=== PATIENT | female | born 1945 | race Caucasian/White ===

== ENCOUNTER 2019-06-05 15:50 | Inpatient (IN) | payer OTHER ==
[~2019-06-05] VITALS: Ht 170.2 cm; Wt 59.6 kg
--- NOTE | ~2019-06-05 | HC ---
[facility] [place] [address] CONSULTATION Name: MARY NOBLE Room #: 358-P ADM IN M.R.#: [id number] Admission: 06/05/19 ������������������ Attend Phys: Enrique Ventura MD Discharge: ������������������ Date of : 43 Report #: [id number] THIS REPORT FOR: //name// CC: [facility] physician/PCP Enrique Ventura DATE OF SERVICE: 06/11/2019 HISTORY OF PRESENT ILLNESS: The patient is a 74-year-old female who was admitted with dyspnea, profound anemia, hemoglobin 4.3, malnutrition, perirectal gluteal ulcers from sitting. They were cognitive issues with concern regarding encephalopathy versus an element of possible dementia. Neurology has been involved. She was seen by Gastroenterology, underwent an EGD showing erosive gastritis and esophageal stricture, which has been dilated. She also had a colonoscopy with diverticulosis. She has been transfused. She has been noted to have axillary adenopathy and an ultrasound directed biopsy has been obtained with results pending. We are seeing her in rehabilitation medicine consultation. PAST MEDICAL HISTORY: Includes hypertension, hypothyroidism, scoliosis. MEDICATIONS: Please see the full medication listing. SOCIAL HISTORY: Lives in a house. Noted to be infested with bedbugs per report. Sister's noted to be involved and the patient apparently is to go stay with her sister now. She had been living on her own and was independent without devices. No stairs. REVIEW OF SYSTEMS: No current complaints of chest pain, shortness of breath or abdominal discomfort. PHYSICAL EXAMINATION: GENERAL: A 74-year-old white female in no obvious distress. The patient is alert. VITAL SIGNS: Last recorded temperature 97.6, pulse 88, respirations 16, blood pressure 142/84 HEENT: Appeared to be benign. NEUROLOGIC: Cranial nerves grossly intact. Facies are symmetric. She has functional range of motion of both upper extremities with strength grade 4-/5. DTRs are trace to 1. Lower extremities, no focal calf swelling, functional range of motion with strength grade 4-/5. She has been at a mod assist level for sit to stand and last ambulated mod assist 20 feet, handheld. The patient does have some delay in her cognitive processing. ASSESSMENT: A 74-year-old white female with the following problem list: 1. Metabolic encephalopathy. She could have an underlying dementia. [address] [address] CONSULTATION Name: MARY NOBLE Room #: 358-P [facility] IN .R.#: [id number] Admission: 06/05/19 ������������������ Attend Phys: Enrique Ventura MD Discharge: ������������������ Date of : 43 Report #: [id number] 2. Profound anemia, now transfused. 3. Erosive gastritis. 4. Esophageal stricture, which has been dilated. 5. Axillary adenopathy with ultrasound biopsy pending. 6. Perirectal gluteal ulcers. 7. Generalized weakness and debilitation. 8. Hypertension. 9. History of scoliosis. PLAN: At this point, the patient meets criteria for an acute [address] [place] [address] inpatient rehabilitation stay. Compliant on transfer when medically ready and bed available. We will be glad to follow along with you regarding her rehab therapy needs. ��������������������������������������������� ���������������������������������������� By: ��������������������������������������������� [id number] Omer Diez MD /nt
[2019-06-05 15:55] VITALS: BP 107/54
[2019-06-05 17:09] LABS: WBC 4.7 thou/uL (4.0-11.0)
[2019-06-05 17:11] LABS: MCH 16.8 pg (26.0-34.0); MCHC 27.6 g/dL (28.0-37.0); MCV 60.9 fL (80.0-100.0); PLATELET COUNT 386 thou/uL (150-400); RBC 2.57 mil/uL (4.20-5.00); RDW 21.3 % (10.5-14.5)
[2019-06-05 17:20] LABS: ANION GAP 9 mmol/L (7-16); BUN 22 mg/dL (7-18); CALCIUM 8.6 mg/dL (8.5-10.1); CHLORIDE 104 mmol/L (98-107); CO2 26 mmol/L (21-32); GLUCOSE 114 mg/dL (74-106); POTASSIUM 3.8 mmol/L (3.5-5.1); SODIUM 139 mmol/L (136-145)
[2019-06-05 17:30] LABS: ALBUMIN 2.3 g/dL (3.4-5.0); DIRECT BILIRUBIN 0.2 mg/dL (<0.1-0.3); SGOT 27 U/L (15-37); SGPT 24 U/L (30-65); TOTAL BILIRUBIN 0.6 mg/dL (<0.1-1.0); TOTAL PROTEIN 6.1 g/dL (6.4-8.2); TROPONIN-I <0.06 ng/mL (<0.06)
[2019-06-05 17:32] LABS: HEMATOCRIT 15.7 % (37.0-47.0); HEMOGLOBIN 4.3 gm/dL (12.0-15.0)
[2019-06-05 17:45] LABS: ABSOLUTE NEUTROPHILS 3.9 thou/uL (1.4-8.2); ANISOCYTOSIS 2+; HYPOCHROMASIA 2+; MICROCYTES 2+; NUCLEATED RBCS 6 /100WBC; POIKILOCYTOSIS SLIGHT; POLYCHROMASIA OCCASIONAL
[2019-06-05 17:57] LABS: % SATURATION 2 % (20-39); IRON 6 ug/dL (50-170); TIBC 295 ug/dL (250-450)
[2019-06-05 18:06] LABS: OBSERVED RETIC COUNT 3.43 % (0.6-2.6)
[2019-06-05 18:40] LABS: FOLIC ACID 6.3 ng/mL (8.6-58.9)
[2019-06-05 20:27] VITALS: BP 123/67
[2019-06-05 23:03] VITALS: BP 106/60; BP 108/61
[2019-06-05 23:52] VITALS: BP 108/61
[2019-06-05] MEDS ORDERED: NORVASC5 M1 PO (23:59)
[2019-06-06] MEDS ORDERED: SYNTHROID88 MC1 PO
[2019-06-06] MEDS ORDERED: SIMVASTATIN40 MG PO (00:02)
--- NOTE | 2019-06-06 00:24 | NUR ---
PT ADMITTED FROM ER. PT LIVES AT HOME THAT IS INFESTED WITH BED BUGS. PT PUT IN CONTACT ISOLATION. PT IS VERY WEAK DUE TO HgB BEING 4.3. PT DID NOT ARRIVE TO UNIT UNTIL 2119. PT WEAKNESS HAS CAUSED HER TO HAVE INCONTINENCY ISSUES AND HAS CREATED MAJOR EXCORIATION ON BUTTOCKS, COCCYX, AND CREASE BETWEEN BUTTOCKS. APPLIED BARRIER CREAM AND CONSULTED WOUND CARE.
[2019-06-06 02:53] VITALS: BP 106/60
[2019-06-06 03:12] LABS: HEMATOCRIT 19.8 % (37.0-47.0); HEMOGLOBIN 5.9 gm/dL (12.0-15.0)
[2019-06-06 03:47] VITALS: BP 114/58; BP 115/68
[2019-06-06 04:06] LABS: GLYCOHEMOGLOBIN (HGB A1C) 5.2 % (4.8-5.6)
--- NOTE | 2019-06-06 04:11 | NUR ---
AFTER FIRST UNIT H&H SHOWED HgB WAS 5.9. LAB HAD SECOND UNIT READY. UNIT IS NOW INFUSING AND REPEAT H&H WILL BE ONE HOUR AFTER COMPLETETION. PT IS BEDBOUND UNTIL HgB IMPROVES AND PT/OT CAN EVAL HER. PT VSS AFTER FIRST UNIT WITH NO REACTIONS. WILL CONTINUE TO ASSESS.
[2019-06-06 07:15] VITALS: BP 115/68
[2019-06-06 08:32] LABS: HEMATOCRIT 23.3 % (37.0-47.0); HEMOGLOBIN 7.3 gm/dL (12.0-15.0)
--- NOTE | 2019-06-06 08:47 | EKG ---
[place] [address] [address] [facility] [place] [address] ELECTROCARDIOGRAM REPORT Name: MARY NOBLE Matthew Room #: 358-P [facility] IN .R.#: [id number] ������������������ Admission: 06/05/19 ������������������ Attend Phys: Enrique Ventura MD Discharge: ������������������ Date of : 43 Report #: [id number] ����������������������������������������������������������������� [id number] THIS REPORT FOR: //name// [facility] ED Test Date: 2019-06-05 Test Time: 20:00:22 Pat Name: MARY NOBLE Department: Room: 358 Gender: F Automatic [employer] Sawyer: TENISHA : 1945 Requested By: Donta Pena Order Number: [id number] MD: Arya Crain Measurements Intervals [place] Rate: 100 P: 69 MA: 139 QRS: -17 QRSD: 73 T: 68 QT: 356 QTc: 460 Interpretive Statements Sinus tachycardia Inferior infarct, old No previous ECG available for comparison Electronically Signed On 06-06-2019 8:47:03 CDT by Arya Crain [email or web address] ��������������������������������������������� <ELECTRONICALLY SIGNED> ���������������������������������������� By: Arya Crain MD, [facility] ��������������������������������������������� 06/06/19 0847 99 99 Arya Crain MD, FACC /EPI
--- NOTE | 2019-06-06 15:08 | NUR ---
WOUND CONSULT; THE PATIENT HAS A DOZEN OR MORE WOUNDS CONSISTANT WITH THE REPORTED BED BUG INFESTATION, BILATERAL BUTTOCKS AND COCCYX AREAS AT VARIOUS HEALING STAGES. RECOMMENDATION; ZGUARD TO ENTIRE AREA COVER WITH SACRAL FOAM, CHANGE DAILY/PRN DISCUSSED WITH STAFF
--- NOTE | 2019-06-06 16:32 | NUR ---
ASSUMED CARE OF PT AT 0700. PT AOX3 PLEASANT IN NO ACUTE DISTRESS. BED BUGS NOTED IN PATIENT BELONGINGS. PICTURE SENT TO ELECTRICAL MANUFACTURING ENGINEER/EVS. PATIENT GIVEN COMPLETE BATH. ALL BELONGINGS DOUBLE BAGGED. ROOM WIPED DOWN BY EVS. ISOLATION PRECAUTIONS IN PLACE. NO OTHER BEDBUGS SINCE DEEP CLEAN. BED BUG BITES NOTED THROUGHOUT BODY. WOUND EVALUATED BY WOUND CARE TEAM - ORDERS RECEIVED. PLANS FOR EGD/COLONSCOPY IN MORNING. BOWEL PREP INITIATED. SINUS ON TELEMETRY. IV FLUIDS INFUSING PER ORDER. HEMOGLOBIN 7.3 AFTER 2 UNITS PRBC INFUSED. ASYMPTOMATIC. PT VOICING NO CONCERNS. ON CLEAR LIQUIDS. TURNED Q2H. PT PROGRESSING TOWARD POC GOALS.
--- NOTE | 2019-06-06 16:58 | NUR ---
REGAN received call from Jasvir Brambila with [facility] ([phone]) stating pt was hotlined yesterday. SW reviewed chart and spoke with nursing. Pt was admitted from home due to anemia. Pt is scheduled to have EGD/colonoscopy tomorrow. Pt in isolation due to bed bugs and fleas. Wound care and Hem/Onc consulted. Per [facility] report, pt's son has been living with pt and providing care. Pt's son has been out of town for about a week and pt has not been taking her medications. [facility] to follow up with pt while in the hospital. SW is following to assist as needed with discharge planning.
[2019-06-06 17:02] VITALS: BP 116/65
[2019-06-06 20:06] VITALS: BP 120/75
[2019-06-06 23:21] VITALS: BP 103/66
[2019-06-07 04:27] VITALS: BP 128/66
[2019-06-07 05:38] LABS: HEMOGLOBIN 6.7 gm/dL (12.0-15.0)
[2019-06-07 05:40] LABS: HEMATOCRIT 22.2 % (37.0-47.0); MCH 21.2 pg (26.0-34.0); MCHC 30.3 g/dL (28.0-37.0); RBC 3.18 mil/uL (4.20-5.00); RDW 29.4 % (10.5-14.5)
[2019-06-07 05:55] LABS: CALCIUM 7.9 mg/dL (8.5-10.1); CREATININE 0.9 mg/dL (0.6-1.0); POTASSIUM 3.3 mmol/L (3.5-5.1)
[2019-06-07 06:04] LABS: MCV 69.9 fL (80.0-100.0)
--- NOTE | 2019-06-07 06:29 | NUR ---
FOLLOWING POC WITH BOWEL PREP AND IVF. PT DRANK ALL KEVIN. PT HAD 5X STOOLS OVER EVENING SHIFT. REMOVED TWO OLD IV LOCATIONS THAT WERE SLUGGISH OR NON FLUSHING. INSERTED NEW 20 GA IN LEFT FOREARM. ISOLATION PRECAUTIONS AND FALL PRECAUTIONS IN PLACE. PT HAS ABILITY TO USE BED DC. WOUND CARE WITH Z-GUARD. HOURLY ROUNDING. PT CAN USE CALL LIGHT WHEN NEEDED.
[2019-06-07 07:32] VITALS: BP 125/64
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
[2019-06-07 09:33] LABS: APTT 37.4 Seconds (24.5-32.8); INR 1.1
[2019-06-07 13:05] VITALS: BP 135/69; BP 146/83
--- NOTE | 2019-06-07 14:45 | NUR ---
Received consult to provide pt with DPOA forms. Additional consult states that pt's son, Drew Antonio, is not to visit pt or receive info. SW discussed case with [facility] wine cellar worker, Jasvir Brambila, who will see pt tomorrow. Pt receiving blood transfusion and may have EGD/colonoscopy later today. Pt remains in isolation due to bed bugs and fleas. SW met with pt at bedside. Introduced role of SW. Pt is alert/orientated x 4. Pt reports she currently lives home alone. Pt's son, Drew, has been staying with her off and on. Prior to admission, pt was independent with ADLs. No use of DME. Pt states that she does not want Drew to visit or be provided with info. Pt reports that her sister will be staying with her when she returns home. SW provided pt with Advance Directive booklet for review. Pt to review document and notify SW/SC when ready to sign and have form witnessed and notarized. SW is following to assist as needed with discharge planning.
[2019-06-07 15:46] VITALS: BP 148/86
--- NOTE | 2019-06-07 17:46 | NUR ---
ASSUMED CARE OF PATIENT AT 0715, PATIENT ALERT WITH SOME CONFUSION, AND SLIGHTLY FORGETFUL. PATIENT DENIES PAIN, BUT HAS SOME DISCOMFORT WITH BUTTOCKS, EXCORIATION NOTED, Z-POOJA APPLIED TO AREA, SACRAL FOAM IN PLACE. PATIENT HAS HAD 3 LOOSE STOOLS, DUE TO BOWEL PREP FOR PROCEDURE/COLONOSCOPY/EGD. PATIENT HAS BEEN NPO SINCE MIDNIGHT. PATIENT HAS HEMG. 6.[address] WILBURN FOR 1 UNIT OF PACKED RED BLOOD CELLS. PATIENT HAD CT SCAN OF CHEST/HEAD THIS AM AND EEG EARLY AFTERNOON. PATIENT RECEIVED 1 UNIT OF BLOOD STOPPED AT 1635, PATIENT LEFT THE UNIT FOR GI LAB AT 1640, REPORT RECEIVED FROM [facility]/GI LAB AT 1735, UPPER FOUND GASTRITIS/BIOPIES DONE, LOWER RIGHT SIDE DIVERTICULOSIS, ESOPHAGUS DIALATED, WILL DO PILL CAM TOMORROW, CAN HAVE REGULAR DIET FOR DINNER AND NPO AFTER MIDNIGHT. PT EVALUATED PATIENT TODAY, OT WILL TRY TOMORROW DUE TO LOW HEMG. SPEECH EVAL ALSO ORDERED. US OF RIGHT AXILLARY POSSIBLE TOMORROW, DUE LYMPH EDEMA. WILL CONTINUE TO MONITOR.
[2019-06-07 19:04] VITALS: BP 124/70
[2019-06-07 23:52] VITALS: BP 124/70
--- NOTE | 2019-06-08 00:46 | P ---
[facility] [place] [place] [address] PROCEDURE REPORT Name: MARY NOBLE Room #: 358-P ADM IN M.R.#: [id number] Admission: 06/05/19 ������������������ Attend Phys: Enrique Ventura MD Discharge: ������������������ Date of : 43 Report #: [id number] THIS REPORT FOR: //name// CC: [facility] physician/PCP Enrique Ventura DATE OF SERVICE: 06/07/2019 DIAGNOSTIC COLONOSCOPY Patient of Dr. Enrique Ventura. INDICATION FOR PROCEDURE: We are looking for possible causes of iron deficiency anemia. Informed consent for this procedure was obtained from the patient and from her sister prior to the procedure, after the risks of bleeding, perforation, infection, complications of sedation and the possibility I could miss something were explained to her. These are not meant to be exclusive risks. There are many risks that are not mentioned here. Anesthesia kindly provided deep sedation for both the EGD that preceded it and this colonoscopy. DESCRIPTION OF PROCEDURE: With the patient in the left lateral decubitus position, a digital rectal exam was performed, and the patient has somewhat indurated pointed area inside the anal canal at 6 o'clock. I think it is probably scar tissue. No other palpable masses or abnormalities are noted, however. Then, the Olympus colonoscope was introduced through the anal sphincter and advanced under direct visualization to the terminal ileum with no difficulty. Findings are noted on withdrawal of the scope. The terminal ileal mucosa appears normal. Cecum, normal mucosa. Ascending colon, normal mucosa. Hepatic flexure, normal mucosa. Transverse colon, normal mucosa. Splenic flexure, normal mucosa. Descending colon, normal mucosa. Sigmoid colon, uncomplicated diverticulosis is noted in the sigmoid colon, uncomplicated diverticulosis was also noted in the proximal ascending colon. Rectum, normal mucosa. Retroflex view did not reveal any other abnormalities. The scope was withdrawn slowly through the anal canal and no other abnormalities were seen. Scope was withdrawn. The patient went to the recovery area in stable condition. She tolerated the procedure well. IMPRESSION: 1. Uncomplicated right and left-sided diverticulosis. 2. Other than that, normal colonoscopic exam to the terminal ileum. RECOMMENDATIONS: For her to be on a high-fiber diet. We will also proceed with [address] [address] PROCEDURE REPORT Name: MARY NOBLE Room #: 358-P [facility] IN [facility].#: [id number] Admission: 06/05/19 ������������������ Attend Phys: Enrique Ventura MD Discharge: ������������������ Date of : 43 Report #: [id number] an M2 capsule study tomorrow. Thank you very much once again for allowing me to participate in her care. ��������������������������������������������� <ELECTRONICALLY SIGNED> ���������������������������������������� By: Jovita Arndt DO ��������������������������������������������� 06/08/19 0046 1754 0028 Joviat Arndt DO /nt
--- NOTE | 2019-06-08 00:48 | P ---
[facility] [place] [address] PROCEDURE REPORT Name: MARY NOBLE Room #: 358-P ADM IN M.R.#: [id number] Admission: 06/05/19 ������������������ Attend Phys: Enrique Ventura MD Discharge: ������������������ Date of : 43 Report #: [id number] THIS REPORT FOR: //name// CC: [facility] physician/PCP Enrique Ventura MD DATE OF SERVICE: 06/07/2019 PROCEDURE: Esophagogastroduodenoscopy with biopsies and esophageal dilatation with a Savary dilator over a guidewire to alleviate an esophageal stricture. PATIENT OF: Dr. Enrique Ventura. INDICATION FOR PROCEDURE: Iron deficiency anemia of undetermined etiology. Informed consent for this procedure was obtained prior to the administration of any medication. The risks of the procedure, which include but are not limited to bleeding, perforation, infection, complications of sedation and the possibility I could miss something were explained to the patient and she has indicated her consent by signing. Her sister who is attempting to get power of assistant prosecuting attorney for her has also indicated her consent for proceeding with EGD and colonoscopy. Anesthesia kindly provided deep sedation for the EGD and the colonoscopy we did for this patient. DESCRIPTION OF PROCEDURE: With the patient in the left lateral decubitus position, the Olympus upper videoscope was introduced through the oropharynx and through the upper esophageal sphincter and advanced under direct visualization to the third portion of the duodenum. Findings are noted on withdrawal of the scope. The second portion of the duodenum appeared normal throughout its entirety. In the duodenal bulb, there was some mild erythema. Pylorus, normal mucosa. Antrum, erythematous, eroded mucosa. Biopsies obtained from the antrum x 4 for histopathology. Good hemostasis was noted after all biopsies. Body, normal mucosa. Cardia and fundus, normal mucosa. Retroflex view does reveal a moderate hiatal hernia. The scope was withdrawn into the esophagus. The Z-line was appropriately located at the top of the gastric folds and appears to be strictured. The scope popped through this area each time I passed through it and I think it is a stricture. The more proximal esophageal mucosa appears normal. The scope was advanced then into the stomach again to the level of the distal antrum. A guidewire was advanced through the scope. The scope was withdrawn over the guidewire and then a #48-Ecuadorean Savary dilator was passed over the guidewire without difficulty. The guidewire and the dilator were removed. Then, the Olympus upper videoscope was reintroduced through the upper esophageal sphincter and advanced under direct visualization to the distal [address] [address] PROCEDURE REPORT Name: MARY NOBLE Room #: 358-P [facility] IN ..#: [id number] Admission: 06/05/19 ������������������ Attend Phys: Enrique Ventura MD Discharge: ������������������ Date of : 43 Report #: [id number] stomach and retroflexed view of the cardia was obtained. It appears that this was a stricture and it was successfully dilated with a #48 Ecuadorean Savary dilator. The scope was then withdrawn. Good hemostasis was noted after all biopsies and after the esophageal dilatation. The stomach appears unchanged from prior to dilatation. The scope was withdrawn into the esophagus. Esophageal mucosa appeared normal throughout its entirety. The scope was withdrawn. The patient was turned for colonoscopy. IMPRESSION: 1. Distal esophageal stricture, dilated as above. 2. Hiatal hernia. 3. Erosive gastritis. 4. Mild erythema of the duodenal bulb. My recommendations were to await the biopsy results and proceed with colonoscopy at this time. Thank you very much once again for allowing me to participate in her care. ��������������������������������������������� <ELECTRONICALLY SIGNED> ���������������������������������������� By: Jovita Arndt DO ��������������������������������������������� 06/08/19 0048 1750 [id number] Jovita Arndt DO /nt
[2019-06-08 03:50] VITALS: BP 142/83
[2019-06-08 05:39] LABS: HEMATOCRIT 26.8 % (37.0-47.0); HEMOGLOBIN 8.3 gm/dL (12.0-15.0)
[2019-06-08 05:51] LABS: CALCIUM 7.8 mg/dL (8.5-10.1); CREATININE 0.8 mg/dL (0.6-1.0); POTASSIUM 4.3 mmol/L (3.5-5.1)
--- NOTE | 2019-06-08 05:53 | NUR ---
POC FOR SACRAL WOUND WAS ZGUARD AND SACRAL BORDER. REPLACED BORDER 1X. OTHER SACRAL DRESSING IN PT ROOM. PT HAS BEEN NPO SINCE 2400. PT STATES NO PAIN OR N/V. PT IS HAVING QUESTIONS ABOUT THE PROCEDURES TODAY. EXPLAINED WHAT EACH ONE WAS AND WHAT THEY ARE LOOKING FOR. PT MENTATION SOMEWHAT OFF TONIGHT WITH SOME FORGETFULNESS. PT HAD HARD TIME SWALLOWING K+ PILLS. WAITING FOR BMP TO SEE K+ RESULTS. PT INCONTINENT THIS EVENING. AT APPROX O300 PLACED EXTERNAL FEMALE CATH. FALL PRECAUTIONS IN PLACE. ISOLATION PRECAUTIONS FOR BED BUGS IN PLACE. HOURLY ROUNDING.
[2019-06-08 07:14] VITALS: BP 145/92
[2019-06-08 09:08] LABS: URINE BILIRUBIN NEGATIVE (Negative); URINE BLOOD NEGATIVE (Negative); URINE CLARITY CLEAR; URINE COLOR YELLOW; URINE GLUCOSE-RANDOM* NEGATIVE (Negative); URINE KETONES NEGATIVE (Negative); URINE NITRITE-REFLEX NEGATIVE (Negative); URINE PROTEIN (DIPSTICK) NEGATIVE (Negative); URINE UROBILINOGEN 0.2 E.U./dl (0.2-1.0)
[2019-06-08 09:09] LABS: URINE LEUKOCYTES-REFLEX 2+ (Negative)
[2019-06-08 09:14] LABS: BACTERIA-REFLEX >30 Many /HPF (None Seen); CASTS None Seen /LPF (None Seen); CRYSTALS None Seen /LPF (None Seen); SQUAMOUS 0-3 Few /LPF (0-3); URINE RBC None Seen /HPF (0-2)
[2019-06-08 16:02] VITALS: BP 136/74
--- NOTE | 2019-06-08 17:35 | NUR ---
REGAN reviewed chart and spoke with nursing and attending physician. Pt is slowly progressing towards goals for discharge. Pt to have capsule study per GI. Pt's sister brought in a notary for DPOA documentation. REGAN notified Director of Case Mgmt. Attending physician states that pt is able to appoint a DPOA and sign documentation. 5N consult ordered. REGAN notified 5N liaison, who states pt will be evaluated on Tuesday by 5N rehab physician. REGAN left voice message for pt's sister to provide update. No weekend discharge planned. REGAN spoke with Jasvir at [facility] to provide update. Jasvir was onsite earlier today to meet with pt. REGAN is following to assist as needed with discharge planning.
[2019-06-08 19:32] VITALS: BP 124/76
--- NOTE | 2019-06-08 19:53 | NUR ---
PATIENT ALERT AND ORIENTED AND COOPERATIVE WITH PLAN OF CARE. PATIENT BIOPSY TO RIGHT AXILLARY LYMPH NOPE UNEVENTFUL WITH BANDAID AND PATIENT INDICATED NO PAIN. PATIENT RESUMED REGULAR DIET. PATIENT SISTER AT BEDSIDE AND SIGNED DPOA FOR FINANCIAL AND MEDICAL WITH NOTARY AND WITNESSES.
--- NOTE | 2019-06-08 20:03 | NUR ---
CONTACTED [employer] ON-CALL PROVIDER REGARDING MESSAGE FROM LAB INDICATING SEVERAL OF THE BIOPSY LAB TEST COULDN'T BE RUN DUE TO SPECIMEN BEING IN FORMULIN. ON-CALL PROVIDER INDICATED SHE WOULD LET [employer] KNOW THE MESSAGE.
[2019-06-09 04:45] VITALS: BP 147/92
[2019-06-09 05:09] LABS: HEMOGLOBIN 7.7 gm/dL (12.0-15.0); MCH 23.2 pg (26.0-34.0); MCHC 30.8 g/dL (28.0-37.0); RBC 3.32 mil/uL (4.20-5.00); RDW 29.7 % (10.5-14.5); WBC 4.6 thou/uL (4.0-11.0)
[2019-06-09 05:11] LABS: MCV 75.4 fL (80.0-100.0)
[2019-06-09 05:18] LABS: CALCIUM 7.8 mg/dL (8.5-10.1); CREATININE 0.7 mg/dL (0.6-1.0); POTASSIUM 3.7 mmol/L (3.5-5.1)
[2019-06-09 07:52] VITALS: BP 136/90
--- NOTE | 2019-06-09 16:32 | NUR ---
ASSUMED CARE OF PT AT 0700. PT ALERT AND ORIENTED, IN NO ACUTE DISTRESS. PLEASANT. VITALS NORMAL. DRESSING CHANGED PER ORDER. IRON INFUSED PER ORDER. ISOLATION PRECAUTIONS IN PLACE. CALLS OUT APPROPRIATELY. EXT GRIDER IN PLACE. SINUS ON TELEMETRY. PT PROGRESSING TOWARD POC GOALS.
[2019-06-09 20:15] VITALS: BP 146/86
--- NOTE | 2019-06-09 23:27 | NUR ---
ASSUMED CARE OF THE PT AT 191 PM. THE PT WAS LYING IN BED ON HER RIGHT SIDE. REPOSITIONED THE PT. ALERT ET ORIENTED X 3. MAKES NEEDS KNOWN. IV FLUIDS INFUSING AT 80 CC PER HOUR. IV SITE, CLEAN, DRY, AND INTACT. HEART RATE REGULAR. LUNGS CLEAR BILATERALLY, RESP., EVEN, AND UNLABORED. +BS HEARD IN ALL 4 QUADRANTS. +PP BILATERALLY. CALL LIGHT WITHIN REACH.
--- NOTE | 2019-06-10 01:27 | NUR ---
THE PT RECEIVED A BATH ON THE EVENING SHIFT. RESP., EVEN, AND UNLABORED. CALL LIGHT WITHIN REACH.
[2019-06-10 04:33] LABS: HEMATOCRIT 28.2 % (37.0-47.0); HEMOGLOBIN 8.4 gm/dL (12.0-15.0); MCH 23.7 pg (26.0-34.0); MCHC 29.8 g/dL (28.0-37.0); MCV 79.5 fL (80.0-100.0); RBC 3.55 mil/uL (4.20-5.00); RDW 31.4 % (10.5-14.5); WBC 5.3 thou/uL (4.0-11.0)
[2019-06-10 04:44] LABS: CREATININE 0.7 mg/dL (0.6-1.0); POTASSIUM 3.7 mmol/L (3.5-5.1)
[2019-06-10 04:55] VITALS: BP 130/66
[2019-06-10 07:50] VITALS: BP 153/96
[2019-06-10 15:27] VITALS: BP 150/94
--- NOTE | 2019-06-10 18:46 | NUR ---
pt is A&OX3, PT is continuing NS @ 80ML/HR, WE encourage pt to eat, pt's hgb has improved ( hgb 8.4 today), pt's vs are stable , pt has slowly meeting care plan goals at this time.
[2019-06-10 19:25] VITALS: BP 148/81
[2019-06-11 04:31] VITALS: BP 156/97
[2019-06-11 05:21] LABS: HEMATOCRIT 27.9 % (37.0-47.0); HEMOGLOBIN 8.5 gm/dL (12.0-15.0); MCH 23.9 pg (26.0-34.0); MCHC 30.5 g/dL (28.0-37.0); MCV 78.4 fL (80.0-100.0); RBC 3.56 mil/uL (4.20-5.00); RDW 35.4 % (10.5-14.5); WBC 4.8 thou/uL (4.0-11.0)
[2019-06-11 05:30] LABS: CALCIUM 8.2 mg/dL (8.5-10.1); CREATININE 0.8 mg/dL (0.6-1.0); POTASSIUM 3.6 mmol/L (3.5-5.1)
--- NOTE | 2019-06-11 05:33 | NUR ---
PT MAKING SLOW PROGRESS TOWARDS GOALS. PT REPORTS THAT SHE IS EATING NEARLY ALL HER MEALS. DENIES ANY PAIN. DID REPORT SOME BRUISING TO HER LEFT AC SITE WHERE PT PREVIOUSLY HAD AN IV CATHETER. SITE IS YELLOWISH BUT SKIN APPEARS INTACT. ENCOURAGED PT TO SHOW EACH RN THAT SITE TO HELP KEEP IT UNDER OBSERVATION. WHEN ASKED IF THIS WAS A NEW FINDING FOR HER SHE SAID THAT THIS WAS NOT A NEW ISSUE.
[2019-06-11 07:52] VITALS: BP 142/84
--- NOTE | 2019-06-11 12:41 | NUR ---
REGAN received call from pt's sister, Janie Soto, requesting update on discharge planning. REGAN discussed case with 5N rehab director occupational therapist, who states they will see how pt does with OT today to determine if pt would qualify for 5N. Pt's sister brought in a notary and had DPOA documentation completed on Tuesday. REGAN left voice message for pt's sister. REGAN is following to assist as needed with discharge planning.
[2019-06-11 16:33] VITALS: BP 137/89
[2019-06-11] MEDS ORDERED: PRENATAL COMPL1 EACH PO (17:53)
[2019-06-11] MEDS ORDERED: PROTONIX40 M1 PO (17:53)
[2019-06-11] MEDS ORDERED: VITAMIN B-1100 M2 PO (17:53)
[2019-06-11] MEDS ORDERED: TYLENOL EXTRA500 MG PO (17:53)
[2019-06-11] MEDS ORDERED: FOLIC ACID1 MG PO (17:53)
[2019-06-11] MEDS ORDERED: SYNTHROID50 MCG PO (17:53)
--- NOTE | 2019-06-11 18:45 | NUR ---
ASSUMED CARE OF PT AT 0700. PT ALERT AND ORIENTED X3 IN NO ACUTE DISTRESS. OK FOR DISCHARGE PER HOSPITALIST. RELAYED TO PHYSICIAN E COLI GROWTH IN URINE CULTURE. ANTICIPATING D/C TO REHAB. DRESSING CHANGED AT 1600 PER ORDER.
--- NOTE | 2019-06-12 10:00 | NUR ---
REGAN left voice message for Jasvir Brambila at [facility] to notify of pt's discharge disposition. Pt was discharged to 5N last evening. REGAN provided [facility] with Rehab CM's contact info. Case closed.
--- NOTE | 2019-06-12 10:07 | PATH ---
[facility] [address] [place] [address] PATHOLOGY RPT PROCEDURE Name: LYSSA PENNINGTON Room #: 358-P DIS IN M.R.#: [id number] ������������������ Admission: 06/05/19 ������������������ Date of : 43 Discharge: 06/11/19 Report #: [id number] Path Case #: [id number] [facility] Accession Number: [id number] . 01 Material submitted: . stomach - BIOPSY,GASTRIC . 01 Clinical history: . Preop DX: Microcitic anemia Postop DX: Gastritis, R sided colon diverticulosis . 02 Diagnosis: Gastric mucosa, gastritis (erosive), endoscopic biopsy: - Moderate reactive gastropathy. - Negative for intestinal metaplasia or atrophy. - Negative for Helicobacter pylori (properly controlled immunohistochemical stain performed). (IUV:armin; 06/11/2019) QMS/06/11/2019 . 02 Electronically signed: . Munira Macdonald MD, Pathologist NPI- [id number] . 01 Gross description: . Received in formalin labeled "Lyssa Pennington, BX of errosive gastritis," are two segments of yellow-mobley soft tissue measuring 0.3 x 0.2 x 0.1 cm and 0.3 x 0.3 x 0.2 cm in greatest dimensions. The specimen is submitted entirely in cassette A1. (DAC; 06/08/2019) XDC/XDC . 02 Pathologist provided ICD-10: K31.9 . 02 CPT . 470264, P08118 Specimen Comment: A courtesy copy of this report has been sent to Specimen Comment: [phone], . Specimen Comment: Report sent to / DR WILBURN Performed at: 01 [facility] [address] [id number] MD Reji Wagner MD Phone: [phone] Performed at: [address] [id number] [address] [address] PATHOLOGY RPT PROCEDURE Name: LYSSA PENNINGTON Room #: 358-P DIS IN M.R.#: [id number] ������������������ Admission: 06/05/19 ������������������ Date of : 43 Discharge: 06/11/19 Report #: [id number] Path Case #: [id number] MD Munira Vadlamani MD Phone: [phone]
--- NOTE | 2019-06-13 08:41 | HC ---
[facility] [place] [address] CONSULTATION Name: MARY NOBLE Room #: 358-P [facility] IN M.R.#: [id number] Admission: 06/05/19 ������������������ Attend Phys: Enrique Ventura MD Discharge: 06/11/19 ������������������ Date of : 43 Report #: [id number] THIS REPORT FOR: //name// CC: [facility] physician/PCP Enrique Ventura DATE OF SERVICE: 06/06/2019 HISTORY OF PRESENT ILLNESS: This is a 74-year-old female patient who was evaluated by me for altered mental status. The patient does not provide much history. Family is here. They provide some history and lot of it is taken from the record. She had been short of breath and she also is severely anemic. Her social situation is very poor. It is not clear what her nutritional status was. It is not sure how long it is going on, but the patient was having pretty significant decrease in memory when I saw her. REVIEW OF SYSTEMS: A 14-point review of system was carried out. She is anemic. She had shortness of breath. She is living with her son for the last several months. She has been feeling weak, but I am not sure whether it is fatigue or the weakness. She is definitely short of breath when she came in according to her. That was the relevant 14-point review of system. PAST MEDICAL HISTORY: Negative for stroke. FAMILY HISTORY: Negative for epilepsy. SOCIAL HISTORY: She lives with her son. She does not use alcohol. PHYSICAL EXAMINATION: Indicate she is alert. She tells me it is June. She cannot tell me the date. She does not know what hospital she is in. She could not name the president, but was able to describe. Speech looks intact. Cranial nerve examination looks intact. She moves all 4 extremities. Position sense is intact. Reflexes are present. There is no cerebellar sign. There is no meningeal sign. Blood pressure is 116/65, respirations 18, pulse is 96, temperature is 97.9. LABORATORY DATA: Her hemoglobin is 7.3 now, which is better than when she came in. GFR is normal at 54. Vitamin B12 is normal, but TSH is high. She does not appear to be in respiratory difficulty. She has no edema. There is no thyroid mass. IMPRESSION: This patient has significant altered mental status. She may be having underlying dementia, especially with this kind of condition she is living in. I think we need to do workup because no good history is available. I will get a CT scan tonight and we [place] [address] CONSULTATION Name: MARY NOBLE Room #: 358-P [facility] IN ..#: [id number] Admission: 06/05/19 ������������������ Attend Phys: Enrique Ventura MD Discharge: 06/11/19 ������������������ Date of : 43 Report #: [id number] The main management is going to be the management of her systemic problem at this stage and will follow the patient along with you. Thank you very much for this referral. ��������������������������������������������� <ELECTRONICALLY SIGNED> ���������������������������������������� By: Lenny Klein MD ��������������������������������������������� 06/13/19 0841 [id number] [id number] Lenny Klein MD /nt
--- NOTE | 2019-06-13 08:41 | EEG ---
[facility] [address] [place] [address] ELECTROENCEPHALOGRAM Name: MARY NOBLE Room #: 358-P [facility] IN M.R.#: [id number] ������������������ Admission: 06/05/19 ������������������ Attend Phys: Enrique Ventura MD Discharge: 06/11/19 ������������������ Date of : 43 Report #: [id number] ����������������������������������������������������������������� [id number] THIS REPORT FOR: //name// CC: [facility] physician/PCP Enrique Ventura DATE OF SERVICE: 06/07/2019 This patient is being evaluated for altered mental status. EEG was done by placing the electrode by standard 10-20 system of electrode placement. Both referential and sequential montages were used for recording. Background activity in this patient's EEG is about 8 Hz and 30 microvolt. The patient went to sleep and that was associated with bilateral slowing and vertex sharp waves. Photic stimulation was unremarkable. Throughout the record, no active epileptiform activity was noticed. IMPRESSION: This patient's EEG is intermixed with some theta range slowing on both sides. That is a nonspecific abnormality, which can occur with dementia, effect of psychotropic medication, encephalopathy, etc. Clinical correlation is recommended. ���������������������������������������� <ELECTRONICALLY SIGNED> ���������������������������������������� By: Lenny Klein MD ��������������������������������������������� 06/13/19 0841 1745 [id number] Lenny Klein MD /nt
--- NOTE | 2019-06-14 00:05 | PATH ---
[facility] [address] [place] [address] PATHOLOGY RPT PROCEDURE Name: REALLYSSA M Room #: 358-P DIS IN M.R.#: [id number] ������������������ Admission: 06/05/19 ������������������ Date of : 43 Discharge: 06/11/19 Report #: [id number] Path Case #: [id number] [facility] Accession Number: [id number] . 01 Material submitted: . lymph node - RIGHT AXILLARY LYMPH NODE. Modifiers: right . 01 Clinical history: . Possible infec or cancer/lymphoma . 02 Diagnosis: Lymph node, right axillary, needle core biopsy: - Lymphoid tissue with occasional reactive follicles, sinus histiocytosis, mild subacute lymphadenitis and few scattered cardona pigment/hemosiderin type deposition. Please see comment. (NATHAN:kathy 06/12/2019) QTP/06/13/2019 . 02 Comment: The right axillary lymph node shows occasional reactive follicles, sinus histiocytosis, mild subacute lymphadenitis and associated few scattered cardona pigment type deposition suggestive of hemosiderin. Definite Anmol-Edil cells, metastatic carcinoma or granulomas are not identified. Immunohistochemical stains with appropriate control show: . (block A3) CD20 - highlights the lymphoid cells within germinal centers and mantle zones. CD3 - highlights admixed T lymphoid cells. CD5 - highlights admixed T lymphoid cells. CD23 - highlights follicular dendritic meshwork. CD10 - highlights B lymphoid cells within germinal centers. BCL6 - highlights B lymphoid cells within germinal centers. BCL2 - highlights B and T lymphoid cells with lack of staining within germinal centers. BLC1 - Negative CD38 - highlights few scattered immunoblasts. Alvo and lambda CECIL - polytypic. . Based on the morphology and immunohistochemical pattern, the findings suggest a benign reactive lymph node. However, it should be noted a partially involved lymph node by malignancy or Hodgkin lymphoma in a background of reactive hyperplasia cannot be totally excluded due to sampling artifact. Excision of the lymph node is recommended if clinically suspicious. (XOCHILTQ:kathy 06/12/2019) . [address] [address] PATHOLOGY RPT PROCEDURE Name: LYSSA NOBLE Room #: 358-P DIS IN M.R.#: [id number] ������������������ Admission: 06/05/19 ������������������ Date of : 43 Discharge: 06/11/19 Report #: [id number] Path Case #: [id number] Co-review: Dr. Tanya Kent . 02 Electronically signed: . Rachel Trejo MD, Pathologist NPI- [id number] . 01 Gross description: . Received in formalin labeled "Hildebrant, Lyssa, right axillary lymph," are 4 distinct needle cores of mobley soft tissue ranging from 0.3 to 1.5 cm in length and measuring less than 0.1 cm each in diameter. The specimen is submitted entirely in cassettes A1 through A3. (TSD; 06/08/2019) TOB/TOB . 02 Pathologist provided ICD-10: L04.2 . 02 CPT . 503291, K10713, L99646, J05122, Y86838 Specimen Comment: A courtesy copy of this report has been sent to Specimen Comment: [phone]. Specimen Comment: Report sent to Performed at: [address] [id number] MD Reji Wagner MD Phone: [phone] Performed at: 02 [facility] [id number] [place] [id number] MD Rachle Trejo MD Phone: [phone]
== END 2019-06-11 18:45 | DRG 802 ==
LOC: ER 15:50 → EROBS 18:01 → 3W 18:01
PROVIDERS: Emergency Medicine; Internal Medicine Gastroenterology; Internal Medicine Hematology & Oncology; ADMIT Internal Medicine
DX: D50.9 Iron deficiency anemia, unspecified (principal); G93.41 Metabolic encephalopathy; K62.6 Ulcer of anus and rectum; E46 Unspecified protein-calorie malnutrition; N39.0 Urinary tract infection, site not specified; R59.0 Localized enlarged lymph nodes; K22.2 Esophageal obstruction; Z60.2 Problems related to living alone; B88.9 Infestation, unspecified; G89.29 Other chronic pain; M41.9 Scoliosis, unspecified; E03.9 Hypothyroidism, unspecified; I10 Essential (primary) hypertension; E53.8 Deficiency of other specified B group vitamins; K29.00 Acute gastritis without bleeding; L98.419 Non-pressure chronic ulcer of buttock with unspecified severity; K44.9 Diaphragmatic hernia without obstruction or gangrene; K31.89 Other diseases of stomach and duodenum; K57.30 Diverticulosis of large intestine without perforation or abscess without bleeding; E78.5 Hyperlipidemia, unspecified; T14.8XXA Other injury of unspecified body region, initial encounter; R10.816 Epigastric abdominal tenderness; B96.20 Unspecified Escherichia coli [E. coli] as the cause of diseases classified elsewhere; N20.0 Calculus of kidney; W57.XXXA Bitten or stung by nonvenomous insect and other nonvenomous arthropods, initial encounter; Y93.89 Activity, other specified; Z79.899 Other long term (current) drug therapy; Z80.8 Family history of malignant neoplasm of other organs or systems; Y92.89 Other specified places as the place of occurrence of the external cause; Z98.82 Breast implant status; Y99.8 Other external cause status; Z80.0 Family history of malignant neoplasm of digestive organs; Z68.20 Body mass index [BMI] 20.0-20.9, adult
CPT/HCPCS: 10879; 62110; 62900

== ENCOUNTER 2019-06-11 14:50 | Inpatient (IN) | payer OTHER ==
[~2019-06-11] VITALS: Ht 170.2 cm; Wt 62.1 kg
--- NOTE | ~2019-06-11 | HC ---
[facility] [place] [address] CONSULTATION Name: MARY NOBLE Room #: 510-P ADM IN M.R.#: [id number] Admission: 06/11/19 Attend Phys: Omer Diez MD Discharge: Date of : 43 Report #: [id number] THIS REPORT FOR: //name// CC: Omer Diez FAM physician/PCP DATE OF SERVICE: 06/23/2019 NEUROBEHAVIORAL STATUS EXAM ATTENDING PHYSICIAN: Omer Diez MD GROUND INSTRUCTOR BASIC: Ck Hazel, PhD CLINICAL PRESENTATION: The patient is being seen for followup neurobehavioral status exam to clarify neurocognitive status. She was initially seen on 06/16/2019 and at that time presented with moderate to severe neurocognitive changes. Followup assessment is to clarify cognitive functioning. Please refer to the earlier assessment for additional information regarding her clinical presentation, background and social history. TECHNIQUES UTILIZED: Mini mental status exam 2 standard version, clock drawing and verbal fluency (letter and category fluency) and clinical interview. EXAMINATION FINDINGS: Her performance on the MMSE 2 brief version was extremely low with a raw score of 9 and a T score of 1. Her performance on the MMSE 2 standard version was a raw score of 20 and T score of 31, which is at the 3rd percentile rank consistent with the earlier assessment. She was 3/3 for initial registration, 4/5 for orientation to time, 2/[address] and 0/3 for immediate recall of 3 items after a brief time delay and distraction. She was 3/5 for serial sevens, 2/2 for naming, 1/1 for repetition, 3/3 for comprehension. She could read and follow single command and write a sentence, but she was unable to accurately copy a simple geometric design. The patient was unable to draw a clock and place the hands at a designated time. Visual spatial construction and copying was extremely low. Letter fluency was a T score of 39, which is at the 14th percentile and the low average range and consistent with the earlier assessment. Category fluency was a T score of 23, which is at less than 1%. Overall, total fluency was a raw score of 30, which is a T score of 24 and percentile rank less than 1. Previous total fluency was a T score of 28 and percentile rank of less than 1, which is also extremely low. The patient appears to be presenting with neurocognitive disorder that has Alzheimer's type features. Deficits are noted in immediate recall, [facility] [address] [place] [address] CONSULTATION Name: MARY NOBLE Room #: 510-P [facility] IN [facility]#: [id number] Admission: 06/11/19 Attend Phys: Omer Diez MD Discharge: Date of : 43 Report #: [id number] attention/concentration and visual spatial construction. DIAGNOSTIC IMPRESSION: 1. Major neurocognitive disorder (dementia), unspecified, without behavior disorder, likely in the mild range. 2. Unspecified anxiety disorder. RECOMMENDATIONS: The patient will require assistance in the management of medication. Driving should be discontinued. She will benefit in a familiar environment with clear routine and expectations for daily behavior. She does not have a behavior disorder and just will benefit from structural changes to allow for compensation of cognitive deficits. A followup neuropsych assessment in 9 to 12 months would also be helpful in continuing to clarify cognitive functioning. Assistance in the management of medication, finances and nutrition will be necessary to maintain safety. Thank you very much for allowing me to provide the consultation on this patient. By: [id number] Ck Hazel, PhD /nt
[~2019-06-11 14:50] MED LIST: NORVASC5 M1 PO; SIMVASTATIN40 MG PO; SYNTHROID88 MC1 PO
[2019-06-11] MEDS ORDERED: FOLIC ACID1 MG PO (17:53)
[2019-06-11] MEDS ORDERED: VITAMIN B-1100 M2 PO (17:53)
[2019-06-11] MEDS ORDERED: PRENATAL COMPL1 EACH PO (17:53)
[2019-06-11] MEDS ORDERED: SYNTHROID50 MCG PO (17:53)
[2019-06-11] MEDS ORDERED: TYLENOL EXTRA500 MG PO (17:53)
[2019-06-11] MEDS ORDERED: PROTONIX40 M1 PO (17:53)
[2019-06-11 19:00] VITALS: BP 145/86
--- NOTE | 2019-06-11 23:58 | NUR ---
ADMISSION NOTE - PATIENT ARRIVED TO THE UNIT AT APPROXIMATELY 1900. PROCESS STEWARD BEFORE THIS RN CAME TO ASSUME CARE RECEIVED ADMISSION ORDERS SHE TRANSFERRED FROM 3RD FLOOR. SHE IS ALERT AND ORIENTED X4, SPEAKS HYPERVERBALLY AT TIMES, IS CALM AND COOPERATIVE UPON ASSESSMENT. LUNGS CLEAR TO AUSCULTATION BOWEL SOUNDS PRESENT +4. PULSES PALPABLE +2. PT HAS SALINE LOCK IN RIGHT HAND, THIS RN FLUSHED SALINE LOCK WITH NS TO ENSURE PATENCY. SHE APPEARS TO BE A POOR HISTORIAN ON ASSESSMENT AND IS RELUCTANT TO SHARE INFORMATION ON CURRENT LIVING SITUATION AND SITUATION WITH SON. IT WAS REPORTED TO THIS RN THAT SON IS TAKING MONEY FROM PATIENT AND PT REQUESTS SON TO NOT VISIT. SHE REPORTS THAT AFTER DISCHARGE SHE WILL LIVE WITH HER SISTER UNTIL 'SOME YOU KNOW FAMILY THINGS ARE SORTED OUT.' VSS STABLE UPON ADMISSION, HGB STILL LOW. PATIENT WILL FOLLOW UP WITH SPECIALTIES WHILE HOSPITALIZED. NO MEDICATION TO BE ADMINISTERED AT HS. THIS NURSE ROUNDED ON PATIENT AND PATIENT WAS IN BED WITH EYES CLOSED, RR EVEN AND UNLABORED, NO S/S OF DISTRESS. SHE IS A ONE ASSIST TO BSC. SHE VOIDED X1, BM X1. WILL CONTINUE TO MONITOR PATIENT.
[2019-06-12 05:54] LABS: HEMATOCRIT 28.8 % (37.0-47.0); HEMOGLOBIN 8.8 gm/dL (12.0-15.0); MCH 24.1 pg (26.0-34.0); MCHC 30.8 g/dL (28.0-37.0); MCV 78.3 fL (80.0-100.0); RBC 3.67 mil/uL (4.20-5.00)
[2019-06-12 06:04] LABS: CALCIUM 8.6 mg/dL (8.5-10.1); CREATININE 0.9 mg/dL (0.6-1.0); POTASSIUM 3.8 mmol/L (3.5-5.1)
[2019-06-12 07:45] VITALS: BP 136/88
--- NOTE | 2019-06-12 09:07 | NUR ---
Nutrition: Consulted for anemia. Here w/ metabolic encephalopathy. Pt seen this AM w/ family member at bedside. Prior to rehab admit, RD saw pt 2x last week. Ongoing low Hgb (8.8 per 8/6, up from 6.7 per 06/07). Pt reports po intake is going very well; appetite is strong and feels she is eating adequately again. Tried some supplements last week, but feels she is eating enough now. RD provided education on High Iron Foods (for anemia). Encouraged her to work on meat proteins, beans, fortified grains and suggested ordering more oatmeal, cream of wheat for breakfast. Coccyx wounds w/ excoriation documented (from bed bugs per EMR). Pt is choosing protein regularly w/ each meal. Denied wanting to restart supplements d/t higher po intake. Low nutrition risk.
--- NOTE | 2019-06-12 11:19 | NUR ---
PATIENT CARE WAS ASSUMED AT 0715.PATIENT IS ALERT AND ORIENTED X4.PATIENT IS ABLE TO AMBULATE WITH WALKER X1 ASSIST.PATIENT IS ABLE TO TAKE MEDICATIONS WITH WALKER WITHOUT ISSUES.PT HAS NO COMPLAINS OF PAIN AT THIS TIME.PT HAS SOME COMPLAINS OF NAUSEA, W/O ANY VOMITING.PT HASN'T HAD A BM IN A FEW DAYS.PATIENT WAS GIVEN SOME MEDICAITON FOR CONSTIPATION.PT HAS BEEN PASSING GAS.PATIENT HAS A RASH ON HER ARM FROM TAPE PLACEMENT ON LEFT AC FROM OLD IV SITE.PT HAS SOME PAIN WITH NEW IV SITE.NURSE WILL ASK DOCTOR IF IV IS NEEDED SO WE CAN REQUEST FOR A REMOVAL OF THE IV.PT HAS CALL LIGHT,PHONE AND PERSONAL BELONGINGS [facility] [employer]
--- NOTE | 2019-06-12 12:54 | NUR ---
team meeting, reccomendation: re team.
--- NOTE | 2019-06-12 16:06 | NUR ---
cm visited with pt after team meeting, pt is able to make her needs know. education on dcp, transition of care, home health and rehab. per chart pt lived with her son matilde sanderson who is not to visit or get any information rt yelena. was hotline with [facility] bellman captain on acute rehab. pt was independent with adl bellman captain. yelena is pleasant wit some forgetfulness " can talk with my sister about dc"yelena. cm called bc liao, no answer will cont following as needed for dc needs.
[2019-06-12 19:05] VITALS: BP 134/80
--- NOTE | 2019-06-13 00:27 | NUR ---
UP WITH ASSIST TO BSC, VOIDED, SMALL BM TONIGHT, ALERT/ORIENTED X4, BED ALARM ON, DENIES PAIN, CREAM TO ARM, RESTING GOOD, HOURLY ROUNDING, MONITORED.
[2019-06-13 08:00] VITALS: BP 134/72
--- NOTE | 2019-06-13 11:30 | NUR ---
cm was stopped by pt sister bc liao who stated " going to have director of placement come up to complete dpoa paper work, she has lost everything now and going to even have to get her new shoes"/reader. education on dcp and team meeting yesterday " oh good, where is she going to do?"/reader. education that cont therapy ? possible move in with sister " oh no that will not work i work 12 hours days and i am never home, she will have to go somewhere"/reader. education on snf list, and long term " she can not pay private, need to talk with someone about getting her some medicaid."/bc liao education [facility] and referral to be sent. will cont following as needed for dc needs.
--- NOTE | 2019-06-13 13:53 | NUR ---
ASSUMED CARE AT APPROX 0715. PATIENT A/O X4. DENIES PAIN. VSS. UP X1 ASSIST GB AND WALKER, GENERAL WEAKNESS NOTED, POOR ENDURANCE AT THIS TIME. PATIENT TOLERATED STANDING WITH WALKER FOR WOUND CARE. WOUND CARE COMPLETED PER ORDERS. PHOTOS OBTAINED. PATIENT PARTICIPATING IN THERAPY. RASH TO INNER LEFT ELBOW NOTED, HYDROCORTISONE CREAM APPLIED. FALL PRECAUTIONS IN PLACE. PATIENT'S SISTER AT BEDSIDE, PROVIDED DPOA PAPERWORK, COPY MADE AND PLACED ON CHART. PATIENT PARTICPATING IN AFTERNOON THERAPY. ROUNDED ON HOURLY. FALLL PRECAUTIONS IN PLACE. WILL CONTINUE TO MONITOR.
--- NOTE | 2019-06-13 14:40 | NUR ---
Patient participated in community reintegration on 06/13/19 with Physical Therapy. Refer to documentation by PT.
[2019-06-13 19:24] VITALS: BP 135/86
--- NOTE | 2019-06-13 22:53 | NUR ---
ASSUMED CARE AT APPROX 1915. PATIENT A/O X4. ABLE TO VOICE HER NEEDS. DENIES PAIN AND INSOMIA. VSS ON RA. HR IS 100. WILL CONTINUE TO MONITOR. UP X1 ASSIST GB AND WALKER. REASSESSMENT PER CHART. HAD BM THIS AM. SACRUM DRESSING C/D/I. ENCOURAGE PT TO TURN HERSELF IN BED AT NIGHT. RASH TO INNER LEFT ELBOW AND ON RIGHT ARM, HYDROCORTISONE CREAM APPLIED. OFFERED SUPPORTIVE CARE. ENCOURAGED PT TO LET NURSE KNOW IF SHE NEEDS PAIN MED OR SLEEPING AID. ROUNDED ON HOURLY. FALL PRECAUTIONS IN PLACE. WILL CONTINUE TO MONITOR.
[2019-06-14 07:20] VITALS: BP 107/58
--- NOTE | 2019-06-14 13:54 | NUR ---
pt sister c yanni here for visit, snf list provided, ([facility], [facility], [facility] , [facility], [facility], [facility], [facility], [facility] and [facility] are places that mrs yanni said she was going to tour on tuesday. " only can look on tuesday and when is [place] going [place]?"/bc. re-education that [employer] will be contacting her to get started with medicaid process. " oh thank you everyone has been so help and she is doing good with therapy here"/bc. will cont following as needed for dc needs.
[2019-06-14 19:05] VITALS: BP 135/80
--- NOTE | 2019-06-15 01:52 | NUR ---
assumed care at approx 1900 evening 06/14. pt sitting up in bed alert and oriented x4, appropriate and cooperative. pt denied complaints except for stating she was tired. pt up to bathroom with walker with 1 assist and had moderated formed bm. pt requesting nystatin powder to be left at bedside and she would put on herself before bedtime. pt requested to not change into gown and sleep in her clothes. pt appears to be sleeping soundly with hourly rounding checks. bed alarm on and call light in reach. will continue to monitor.
[2019-06-15 07:30] VITALS: BP 102/45
--- NOTE | 2019-06-15 16:03 | NUR ---
ASSUMED CARE AT APPROX 0715. PATIENT A/O X4. ABLE TO VOICE HER NEEDS. DENIES PAIN. HAS BRIGHT AFFECT AND PARTICIPATES WITH THERAPY. VSS ON RA. UP X1 ASSIST GB AND WALKER. ASSIST TO BATHROOM AND ENCOURAGE PT TO BE UP IN DINNING ROOM FOR MEALS. HAS GOOD APPETITE. REASSESSMENT PER CHART. SACRUM APPLIED WITH ZGUARD, IT IS GETTING BETTER. NO NEED OF SACRAL OPTIFOAM, LEFT MESSAGE TO COURTNEY WOUND NURSE. ENCOURAGED PT TO TURN SELF IN BED. RASH TO INNER LEFT ELBOW AND ON RIGHT ARM, HYDROCORTISONE CREAM APPLIED. IT IS GETTING BETTER. RIGHT ARM IS NEGATIVE FOR DVT. OFFERED SUPPORTIVE CARE. FALL PRECAUTIONS IN PLACE. CALL LIGHT WITHIN REACH. PT USES CALL LIGHT APPROPRIATELY. RESTING IN BED AT THIS MOMENT. WILL CONTINUE TO MONITOR.
[2019-06-15 16:58] VITALS: BP 145/85
[2019-06-15 21:31] VITALS: BP 147/81
--- NOTE | 2019-06-16 02:07 | NUR ---
PT ASSESSMENT COMPLETED AND VSS. MEDS GIVEN ORDERED AND WELL TOLERATED. FALL PRECAUTIONS IN PLACE. UP TO THE BATHROOM WITH ASST/GAIT/WALKER. STEADY. TURNING PT ORDERED AND KEEP HER OFF OF HER SORE. SLEEPING WELL. WILL CONTINUE TO MONITOR FREQUENTLY.
[2019-06-16 08:00] VITALS: BP 128/80
--- NOTE | 2019-06-16 12:06 | NUR ---
ASSUMED CARE AT APPROX 0715. PATIENT A/O X4. ABLE TO VOICE HER NEEDS. DENIES PAIN. HAS BRIGHT AFFECT AND PARTICIPATES WITH THERAPY. VSS ON RA. UP X1 ASSIST GB AND WALKER. RASH TO INNER LEFT ELBOW AND ON RIGHT ARM, HYDROCORTISONE CREAM APPLIED. IT IS GETTING BETTER. OFFERED SUPPORTIVE CARE. REASSESSMENT PER CHART. MORNING MEDS GIVEN. FALL PRECAUTIONS IN PLACE. CALL LIGHT WITHIN REACH. PT USES CALL LIGHT APPROPRIATELY. CHECK HOURLY FOR NEEDS AND SAFETY.WILL CONTINUE TO MONITOR.
[2019-06-16 19:30] VITALS: BP 146/87
[2019-06-16 20:40] VITALS: BP 126/56
--- NOTE | 2019-06-17 02:41 | NUR ---
PT ASSESSMENT COMPLETED AND VSS. MEDS GIVEN ORDERED AND WELL TOLERATED. FALL PRECAUTIONS IN PLACE. PT IMPULSIVE AT TIMES. VOIDING LARGE AMOUNT OF YELLOW URINE. BARRIER CREAM APPLIED TO BOTTOM. TURNED Q 2 HOURS. SLEEPING WELL. WILL CONTINUE TO MONITOR FREQUENTLY.
--- NOTE | 2019-06-17 18:42 | NUR ---
PATIENT ALERT AND ORIENTED AND PLEASANT AND COOPERTIVE WITH PLAN OF CARE. PATIENT DOES NOT WANT MALE STAFF TO APPLY CREAM TO HER BUTTOCK WOUND. NO VISITORS DURING DAY SHIFT. PATIENT AND SISTER WOULD LIKE ASSISTANCE FROM CM TO CHOOSE LIVING ARRANGEMENTS UPON DISCHARGE.
[2019-06-17 19:05] VITALS: BP 173/85
[2019-06-17 22:20] VITALS: BP 141/72
--- NOTE | 2019-06-18 02:08 | NUR ---
PT ASSESSMENT COMPLETED AND VSS. MEDS GIVEN ORDERED AND WELL TOLERATED. FALL PRECAUTIONS IN PLACE. UP TO THE BATHROOM WITH ASST/GAIT/WALKER. IMPULSIVE AT TIMES. PT IS FORGETFUL AND DOESN'T ALWAYS REMEMBER TO CALL FOR HELP. PRN TYELNOL HELPFUL FOR GENERAZIED DISCOMFORT. CREAM APPLIED TO LEFT ARE. NYSTATIN APPLIED TO FUNGAL AREAS. Z GUARD APPLIED TO CLEAN PRESSURE WOUNDS ON THE PTS BOTTOM SEVERAL TIMES. TURNED Q 2 HOURS. SLEEPING WELL. WILL CONTINUE TO MONITOR FREQUENTLY.
[2019-06-18 07:20] LABS: URINE BILIRUBIN NEGATIVE (Negative); URINE BLOOD NEGATIVE (Negative); URINE COLOR YELLOW; URINE GLUCOSE-RANDOM* NEGATIVE (Negative); URINE KETONES NEGATIVE (Negative); URINE LEUKOCYTES-REFLEX NEGATIVE (Negative); URINE PROTEIN (DIPSTICK) NEGATIVE (Negative); URINE SPECIFIC GRAVITY 1.015 (1.005-1.035); URINE UROBILINOGEN 0.2 E.U./dl (0.2-1.0)
[2019-06-18 07:21] LABS: URINE CLARITY HAZY; URINE NITRITE-REFLEX POSITIVE (Negative)
[2019-06-18 07:40] VITALS: BP 125/63
[2019-06-18 08:38] LABS: BACTERIA-REFLEX >30 Many /HPF (None Seen); CASTS None Seen /LPF (None Seen); SQUAMOUS 0-3 Few /LPF (0-3); URINE WBC-REFLEX 0-5 Rare /HPF (0-5)
[2019-06-18 08:39] LABS: CRYSTALS None Seen /LPF (None Seen); URINE RBC None Seen /HPF (0-2)
[2019-06-18 08:49] LABS: ABSOLUTE NEUTROPHILS 2.5 thou/uL (1.4-8.2); BASOPHILS 2.6 % (0.0-2.0); HEMATOCRIT 28.4 % (37.0-47.0); MCHC 31.8 g/dL (28.0-37.0); MCV 81.9 fL (80.0-100.0); MONOCYTES 8.5 % (1.0-8.0); PLATELET COUNT 561 thou/uL (150-400); POLYS 58.9 % (36.0-66.0); RBC 3.46 mil/uL (4.20-5.00); RDW 35.5 % (10.5-14.5); WBC 4.3 thou/uL (4.0-11.0)
[2019-06-18 09:35] LABS: ANISOCYTOSIS 2+; HYPOCHROMASIA 1+; MICROCYTES 2+; PLATELET ESTIMATE INCREASED
--- NOTE | 2019-06-18 11:24 | NUR ---
ASSUME PT CARE AT 0700. PT ASSESSMENT COMPLETED AND VSS. UA OBTAINED AND SENT TO LAB. POSITIVE FOR UTI. CALLED AND NOTIFIED DR. WILBURN. STILL WAITING FOR DR. WILBURN CALL BACK FOR ABT ORDER. MEDS GIVEN ORDERED AND WELL TOLERATED. UP TO THE BATHROOM WITH ASST/GAIT/WALKER. CREAM APPLIED TO LEFT ARE. NYSTATIN APPLIED TO FUNGAL AREAS. Z GUARD APPLIED TO CLEAN PRESSURE WOUNDS ON THE PTS BOTTOM SEVERAL TIMES. IT LOOKS BETTER. WOUND NURSE CAME TO SEE PT THIS AM. OFFERED SUPPORTIVE CARE. ENCOURAGED PT TO VOICE HER NEEDS. PT PARTICIPATES WITH THERAPY. ENCOURAGED PT TO GO TO DINNING ROOM FOR MEALS. FALL PRECAUTION IN PLACE. CALL LIGHT WITHIN REACH. WILL CONTINUE TO MONITOR FOR NEEDS AND SAFETY.
--- NOTE | 2019-06-18 13:06 | NUR ---
WOUND CARE FOLLOW UP; THE SACRAL WOUNDS ARE MUCH IMPROVED. NO S/S OF INFECTION AND NO PAIN REPORTED TO ME. RECOMMENDATIONS; CONTINUE CURRENT PLAN DISCUSSED WITH RN
--- NOTE | 2019-06-18 17:31 | HC ---
[facility] [place] [address] [place] [address] CONSULTATION Name: MARY NOBLE Room #: 510-P ADM IN M.R.#: [id number] Admission: 06/11/19 Attend Phys: Omer Diez MD Discharge: Date of : 43 Report #: [id number] THIS REPORT FOR: //name// CC: Omer Diez FAM physician/PCP DATE OF SERVICE: 06/16/2019 NEUROBEHAVIORAL STATUS EXAMINATION ATTENDING PHYSICIAN: Omer Diez MD CLIP RIVETER: Ck Hazel, PhD CLINICAL PRESENTATION: The patient is a 74-year-old female, initially admitted to the hospital on 06/05/2019 with severe anemia. She also presented with malnutrition and perirectal gluteal ulcers from sitting. Cognitive issues were noted with encephalopathy versus possible dementia. Her past medical history includes hypertension, hypothyroidism and scoliosis. Admission to the rehab unit included metabolic encephalopathy with possible underlying dementia, profound anemia, erosive gastritis, esophageal stricture, axillary adenopathy, perirectal gluteal ulcer, generalized weakness and debilitation, hypertension, and a history of scoliosis. A complete description of her medical condition and history can be found in her medical record. Neuropsychological consultation was requested to provide assistance in the assessment of cognitive and emotional status and to provide recommendations and services. Prior to this most recent admission, the patient reported that she was living independently in her own home. Her home is reported to have been infested with bed bugs. The patient voiced a plan to move into another home with her sister. She indicates that she was independent with all activities of daily living including driving. She had 2 children. Her son and are reported to have in 08/2018. One son is still living from whom she is estranged. The patient has 2 sisters. She reports completion of the ninth grade. 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 TECHNIQUES UTILIZED: Clinical interview, review of medical records, staff consultation and behavioral observation, mini mental status exam 2 standard version, verbal fluency assessment, brief abstract reasoning test and clock drawing. EXAMINATION FINDINGS: The patient was alert and cooperative with the assessment. While vague regarding the events surrounding her initial hospitalization, she does accurately identify anemia as a presenting concern. She does not report auditory or visual hallucinations or present [facility] [address] [place] [address] CONSULTATION Name: MRAY NOBLE Room #: 510-P [facility] IN ..#: [id number] Admission: 06/11/19 Attend Phys: Omer Diez MD Discharge: Date of : 43 Report #: [id number] with an aphasia. Her symptoms are reported to include memory, anxiety, and depressed mood. She does not report difficulty with word finding. She was restless and fidgety during the assessment. Her performance on the MMSE 2 brief version was extremely low with a T score of 20 which is at less than 1%. She was 3/3 for initial registration, 4/5 for orientation to time, 3/[address] and 0/3 for immediate recall of 3 items after a brief time delay and distraction. Her performance on the MMSE 2 standard version was a raw score of 20 and a T score of 31 which is at 3rd percentile. She was 2/5 for serial sevens, 2/5 for naming, 1/1 for repetition, 3/3 for auditory comprehension. She could read and follow single command and write a sentence. The patient had difficulty with copying a simple geometric design. Clock drawing was impaired for hand placement. Visual spatial organization was within normal limits. Letter fluency was in the low average range with a raw score of 13, T score of 39, percentile rank of 14. Category fluency was extremely low with a raw score of 30 and a T score of 27. Overall, total fluency was a T score of 28 and percentile rank of 1 which is extremely low. Brief abstract reasoning test was 2/8 suggesting deficits in higher level conceptual reasoning. The patient is presenting with deficits in immediate recall, sustained concentration and attention and executive functioning. Impairment with thought organization, planning and problem solving are suggested. Given the description of her premorbid living arrangement, a neurodegenerative disorder is suggested. DIAGNOSTIC IMPRESSION: Major neurocognitive disorder (dementia), possibly with Alzheimer type features, with decreased insight -- extent to be determined, likely in the [id number] range. Unspecified anxiety disorder with depression. RECOMMENDATIONS: A followup neuropsychological evaluation upon stabilization of her medical condition and discharge will be of benefit to clarify the severity of cognitive status. She may benefit from a workup for neurodegenerative disorder that includes a Neurology consult and brain imaging if not yet completed. The patient reports plans to move in with her sister. She will likely require assistance in medical, financial and nutritional management. The use of medications to support cognition may also be of benefit. Driving should be [facility] [address] [place] [address] CONSULTATION Name: MARY NOBLE Room #: 510-P [facility] IN M.R.#: [id number] Admission: 06/11/19 Attend Phys: Omer Diez MD Discharge: Date of : 43 Report #: [id number] discontinued until a more formal assessment has been completed including a behind the wheel driving assessment. Thank you very much for allowing me to provide the consultation on this patient. <ELECTRONICALLY SIGNED> By: Ck Hazel, PhD 06/18/19 1731 [id number] Ck Hazel, PhD /nt
[2019-06-18 19:25] VITALS: BP 165/92
--- NOTE | 2019-06-18 23:19 | NUR ---
PT ASSESSMENT COMPLETED AND VSS. MEDS GIVEN ORDERED AND WELL TOLERATED. FALL PRECAUTIONS IN PLACE. UP TO THE BATHROOM - STEADY. VOIDING LARGE AMOUNT OF URINE. BM AT HS. SLEEPING WELL. TURNED Q 2 HOURS. ZGUARD APPLIED TO PRESSURE WOUNDS SEVERAL TIMES. WILL CONTINUE TO MONITOR FREQUENTLY.
[2019-06-19 07:30] VITALS: BP 121/56
--- NOTE | 2019-06-19 12:43 | NUR ---
team meeting, recommendation: would possible be home, by here self, if mrs liao can check on her with medication, she is safe with making cold meals, and work on microwave. not needing 24h care. dc tuesday hopefully to sister with hh (pt,ot,st,and nursing) and dme fww, recommends shower chair for family to assist with getting for pt.
--- NOTE | 2019-06-19 13:11 | NUR ---
Nutrition followup: pt eating well, > 75% most meals. Ensure supplements are ordered BID and pt would like to continue. Coccyx wounds present from bedbugs. Prior diet review completed for increasing Fe+ in diet. GI follows for ongoing anemia/Low hemoglobin. Esophageal stricture, S/P dilation, erosive gastritis per EGD. No weight since 06/11. Folate 6.3, on supplement as well as thiamine and vitamin. Continue as low nutrition risk.
[2019-06-19 20:18] VITALS: BP 138/76
--- NOTE | 2019-06-20 02:48 | NUR ---
ASSUMED CARE FROM DAY SHIFT PT UP TO BATHROOM WITH WALKER STEADY WHEN UP , DISCUSSED PLAN OF CARE AND AGREEABLE, NO CONCERNS VOICED. RESTING WELL THROUGHOUT HOURLY ROUNDS, BED ALARM FOR SAFETY. WILL CONTINUE WITH CURRENT PLAN OF CARE.
[2019-06-20 07:35] VITALS: BP 139/70
--- NOTE | 2019-06-20 10:30 | NUR ---
ankit received phone call from pt sister reader. cm passed on information and how yelena is making good process and not requiring 24 hr supervision, she is working with ot on cooking. " oh that is wonderful but where is she going to go, i want to get her hospital bed since she had the problem and where is she going to live. i am not home for she to be with me, nope."/reader. re-education on medicaid brianda for [place], private pay for [place] and [place], [facility] side that possible takes [place]icaid. ankit provided [employer] number and referral sent to [facility] per sister request. cm re- education that sp is snf short term, asked her if she tour any place " no when do i have the time, send to [facility] please"/reader. ankit passed on information to 5n team. will cont following as needed for dc needs.
--- NOTE | 2019-06-20 11:06 | NUR ---
WOUND CARE FOLLOW UP; ASSESSMENT OF THE SACRUM WOUNDS BILATERALLY ARE IMPROVING DRAMATICALLY SINCE ADMISSION. THE PATIENT IS PROGRESSIMG WELL ON GOALS TOWARD DISCHARGE. COMTINUE CURRENT TREATMENT. DISCUSSED WITH RHIANNON
--- NOTE | 2019-06-20 11:18 | NUR ---
ASSUMED CARE AT 0700. PATIENT IS ALERT AND ORINETED X4. UP WITH ASSIST OF 1 WITH GAIT BELT TO AMBULATE TO THE BATHROOM TO VOID MAAME COLORED URINE. PATIENT MEYERS'S, CAR FILLER ARE EQUAL. LUNGS ARE CLEAR. ABD IS SOFT WITH BSX4. FALL AND SAFETY PROTOCOLS IN PLACE. DENIES ANY PAIN. BOTTOM HAS IMPROVED. Z-GUARD APPLIED AFTER EACH VOID/BM. FAMILY AT BEDSIDE. CONTINUES TO PROGESS TOWARDS D/C GOALS. WILL CONTINUE TO MONITER.
--- NOTE | 2019-06-20 14:28 | NUR ---
supply chain planner sent new skilled referral to [facility], patient to likely dc this coming Tuesday. DP sent text to Walter/[facility] to let her know to look for incoming faxed referral.
[2019-06-20 19:00] VITALS: BP 154/83
--- NOTE | 2019-06-21 03:21 | NUR ---
ASSUMED CARES AT 1900. PT AO*4. DENIES PAIN. VITALS REMAIN STABLE. PT REPORTS MILD ITCHING ON LEFT ARM AND STATED THAT SHE'S BEEN APPLYING LOTION WHICH SEEMS TO HELP. REDNESS ON LEFT ARM AND RASHES REMAIN. MILD RED SPOTS NOTED ON LEFT ZAMUDIO WELL. CONTINUES TO HAVE REDNESS UNDER BREASTS, SITE CLEANED AND NYSTATIN POWDER ADMINISTERED. WOUNDS ON BUTTOCKS REMAIN INTACT, ZGUARD APPLIED NEEDED. UP WITH 1 MIN ASSIST, GAITBELT AND WALKER AND TOLERATED WELL. Q1H VISUAL CHECKS. CALL LIGHT WITHIN REACH. FALL PRECAUTIONS IN PLACE
[2019-06-21 07:50] VITALS: BP 149/83
--- NOTE | 2019-06-21 13:31 | NUR ---
provider plus will get pt her walker prior to dc if dc home with hh. [facility] provided update that still working on dcp and location and sister mrs liao will not be letting yelena move in with her. ankit spoke with letitia blas who stated that reached out to mrs liao last week and will again rt medicaid question. ankit left message with mrs liao.
--- NOTE | 2019-06-21 16:21 | NUR ---
dp faxed referrals to the following: [facility] (they received and called to talk with nurse ankit Arzola, they are going to come see patient tomorrow). 2. [facility] (they called Ness/ankit nurse and they are coming tomorrow to see patient. 3. Ramírez Nick, left a message with Yareli at facility. 4. Srini Plummer , left message with Felecia 5. trent Elliott spoke with Evelia in admissions she received and will look over and get back to us.
[2019-06-21 19:15] VITALS: BP 160/94
--- NOTE | 2019-06-21 19:29 | NUR ---
ASSUMED CARE OF PT AT 0715. PT IS A&OX4 AND VITAL SIGNS ARE STABLE. PT IS IMPULSIVE AND REQUIRES FREQUENT CHECKS FROM STAFF DUE TO HER ABILITY TO TURN OFF ALARMS IN ROOM. PER ST PT IS TO CALL NURSING 15 MINUTES PRIOR TO DUE TIME FOR MEDICIATINS. PT DID NOT CALL APPROPRAITELY FOR 1400 AND 1900 MEDICAITONS. PT WAS REEDUCATED BY NURSING ABOUT CALLING FOR MEDICATIONS SO THAT SHE CAN PRACTICE MANAGING HER OWN MEDICATIONS AT HOME. PT REPORTS THAT SHE "JUST FORGOT" ABOUT MEDICAITONS BECAUSE SHE WAS BUSY DOING OTHER THINGS, DESPITE HAVING MEDICATION LIST ON BEDSIDE TABLE IN FRONT OF HER. Z-GUARD TO BOTTOM. FALL PRECAUTIONS IN PLACE AND NURSING WILL CONTINUE TO MONITOR.
--- NOTE | 2019-06-22 02:04 | NUR ---
ASSUMED CARES AT 1900. PT AWAKE, ALERT AND ORIENTED*4. DENIES PAIN. VITALS REMAIN STABLE. CONTINUES TO HAVE A RASH ON LEFT ARM, NOT ITCHY ANYMORE PER PATIENT. SACRAL WOUND REMAINS UNCHANGED, PT ENCOURAGED TO REPOSITION Q2H, WOUND CLEANED AND BARRIER CREAM APPLIED. RIGHT FOOT SLIGHTLY SWOLLEN, 1+ PITTING EDEMA, PT DENIES TENDERNESS, EXTREMITY ELEVATED. PT UP WITH 1 MIN ASSIST, GAITBELT AND WALKER AND TOLERATED WELL. Q1H VISUAL CHECKS. CALL LIGHT WITHIN REACH. FALL PRECAUTIONS IN PLACE
[2019-06-22 07:30] VITALS: BP 142/85
--- NOTE | 2019-06-22 09:36 | PLAN ---
[facility] [place] [address] REHAB UNIT PLAN OF CARE Name: MARY NOBLE Room #: 510-P ADM IN M.R.#: [id number] Admission: 06/11/19 Attend Phys: Omer Diez MD Discharge: Date of : 43 Report #: [id number] THIS REPORT FOR: //name// CC: Omer Diez [facility] physician/PCP DATE OF SERVICE: 06/13/2019 PROGRESS NOTE AND OVERALL PLAN OF CARE SUBJECTIVE: The patient is seen back today in followup. No new complaints. Temperature 97.7, pulse 98, respirations 20, blood pressure 134/80. The patient is seen back today in followup. She is in no distress. Last recorded temperature 97.7, pulse 98, respirations 20, blood pressure 134/80. She is mod assist with sit to stand. Gait was min assist 25 feet with a front-wheeled walker. In occupational therapy, lower body dressing is mod assist. Speech therapy is involved with moderate cognitive deficits and moderate memory deficits. ASSESSMENT: 1. Metabolic encephalopathy with potentially some underlying dementia. 2. Profound anemia with transfusion. 3. Erosive gastritis. 4. Esophageal stricture, which was dilated. 5. Axillary adenopathy with Oncology involved. 6. Perirectal gluteal ulcer. 7. Generalized weakness and debilitation. 8. Hypertension. 9. History of scoliosis. PLAN: The overall plan of care is based on the preadmission screen, post-admission physician evaluation and information garnered from therapy assessments. 1. Estimated length of stay is probably at least the next 7-14 days pending progress. 2. Medical prognosis is reasonably good. 3. Anticipated interventions includes the interdisciplinary acute inpatient rehabilitation program. 4. Anticipated functional outcomes would be for the patient to become modified independent with transfers, mobility, ADLs and improved cognition, so that she can return back to the home setting. 5. Discharge destination would be back to the home setting where she lives in a house. Potentially looking at having her stay with her sister or more involved with her sister. 6. Expected therapy by discipline includes PT and OT and speech 1 hour per day, [address] [address] REHAB UNIT PLAN OF CARE Name: MARY NOBLE Room #: 510-P [facility] IN .R.#: [id number] Admission: 06/11/19 Attend Phys: Omer Diez MD Discharge: Date of : 43 Report #: [id number] each five days a week throughout the duration of the acute inpatient rehabilitation stay. <ELECTRONICALLY SIGNED> By: Omer Diez MD 06/22/19 0936 [id number] Omer Diez MD /nt
--- NOTE | 2019-06-22 09:36 | H ---
[facility] [place] [address] HISTORY AND PHYSICAL Name: MARY NOBLE Room #: 510-P [facility] IN M.R.#: [id number] Admission: 06/11/19 Attend Phys: Omer Diez MD Discharge: Date of : 43 Report #: [id number] THIS REPORT FOR: //name// CC: Omer Diez [facility] physician/PCP DATE OF SERVICE: 06/11/2019 HISTORY OF PRESENT ILLNESS: The patient is a 74-year-old white female who was originally admitted on 06/05/2019 with profound anemia, hemoglobin of 4.3 malnutrition perirectal gluteal ulcers from sitting. There were cognitive issues with concern regarding encephalopathy versus element of possible dementia. Neurology was involved. She was seen by Gastroenterology, underwent an EGD showing erosive gastritis and esophageal stricture, which was dilated. She also had a colonoscopy with diverticulosis. She was transfused. She was noted to have axillary adenopathy and an ultrasound directed biopsy was obtained with results pending. She is noted to be debilitated along with the cognitive issues with the metabolic encephalopathy versus or possibly superimposed upon underlying dementia. She was noted to have a significant decline with her overall functioning and has now been admitted for acute inpatient rehabilitation. PAST MEDICAL HISTORY: Includes hypertension, hypothyroidism, scoliosis. MEDICATIONS: Please see the full medication listing. This includes vitamins, herbals, and supplements per report. SOCIAL HISTORY: Lives in a house. This was noted to be infested with bedbugs per report. Sister is noted to be involved and the patient may be able to have some increased assistance from her sister potentially. The patient has been living on her own and was independent without devices premorbidly. No stairs. REVIEW OF SYSTEMS: No current complaints of chest pain, shortness of breath or abdominal discomfort. PHYSICAL EXAMINATION: GENERAL: A 74-year-old female in no distress. VITAL SIGNS: Last recorded temperature 98, pulse 92, respirations 20, blood pressure 136/88. HEENT: Appeared to be benign. CHEST: Sounded clear to auscultation. CARDIOVASCULAR: Regular rate and rhythm. ABDOMEN: Bowel sounds positive, nontender. GENITOURINARY AND RECTAL: Deferred. NEUROLOGIC: Functional range of motion of both upper extremities with strength grade 4-/5. DTRs are trace to 1. Lower extremities, no focal calf swelling, [address] [address] HISTORY AND PHYSICAL Name: MARY NOBLE Room #: 510-P [facility] IN ..#: [id number] Admission: 06/11/19 Attend Phys: Omer Diez MD Discharge: Date of : 43 Report #: [id number] functional range of motion, strength grade 4-/5. There is a latency to her responses. She is a somewhat limited historian. Functionally, she has been at a min assist for basic transfers and has been min assist, ambulated short distance with a roller walker. ASSESSMENT: A 74-year-old white female with the following problem list: 1. Metabolic encephalopathy. She could have an underlying dementia. 2. Profound anemia and was transfused. 3. Erosive gastritis. 4. Esophageal stricture, which was dilated. 5. Axillary adenopathy. 6. Perirectal gluteal ulcer. 7. Generalized weakness and debilitation. 8. Hypertension. 9. History of scoliosis. PLAN: The patient is admitted for acute in-hospital inpatient rehabilitation. Pathology is noted to still be pending regarding the biopsy of the enlarged right axillary lymph node. From a postadmission physician evaluation perspective, there are no relevant changes since the preadmission screening. Please see the above noted review of prior and current medical and functional conditions and comorbidities. Please see the patient's previous and current functional status. As far as risk of complications, the patient has multiple medical comorbidities as noted above. Initial plan of care involves the interdisciplinary acute inpatient rehabilitation program with goal of maximizing her functional independence, so she can hopefully return back to her prior living situation. Measurable functional goals would be for the patient to become modified independent with transfers, mobility, ADLs, so she can hopefully return back to her prior living situation. Prognosis is reasonably good with estimated length of stay probably at least 7-14 days pending progress. Potential barriers would include her multiple medical comorbidities and decreased functional status. The patient meets diagnostic criteria for an acute in-hospital inpatient rehabilitation stay. She meets the medical necessity criteria and we will have the end user consultant physicians continue to follow. She does have the tolerance for therapies and has appropriate discharge goals back to the home setting. <ELECTRONICALLY SIGNED> By: Omer Diez MD 06/22/19 0936 [id number] Omer Diez MD /[facility]
--- NOTE | 2019-06-22 10:31 | NUR ---
cm notified by derek cordova that they spoke wit miss liao and will be out today to visit pt. also received call from alesia garza [facility] who stated spoke with miss liao and she stated her sister will need medicaid assistance with living arrangements . will cont following as needed for dc needs/ cm passed on information to bedside nurse.
--- NOTE | 2019-06-22 12:55 | NUR ---
WOUND CARE FOLLOW UP; WOUNDS CONTINUE TO IMPROVE. NO NEED TO CHANGE PLAN OF CARE AT THIS TIME. RECOMMENDATION; CONTINUE PLAN OF CARE. DISCUSSED WITH RN
--- NOTE | 2019-06-22 17:50 | NUR ---
ASSUMED CARE OF PT AT 0715. PT IS A&OX4 AND VITAL SIGNS ARE STABLE. Z-GUARD APPLIED TO BOTTOM FREQUENTLY. PT REMINDED TO CALL NURSING FOR MEDICAITONS. PT DID NOT CALL FOR AFTERNOON MEDICATIONS, BUT DID REMIND NURSE THIS MORNING DURING VITALS. PER CASE MANAGEMENT OT IS REQUESTED TO ASSIST PT WTIH MICROWAVE USE, MAKING COFFEE, AND DOING FULL LOADS OF LAUNDRY PRIOR TO DISCHARGE. FALL PRECAUTIONS IN PLACE AND NURSING WILL CONTINUE TO MONITOR.
[2019-06-22 20:00] VITALS: BP 146/82
--- NOTE | 2019-06-23 03:47 | NUR ---
assumed care at approx 1900 evening 06/22. pt sitting up in bed at change of shift resting. pt pleasant and cooperative, calm. pt reminded to use call light and wait for staff to assist pt up to bathroom. pt verbalized understanding and did call out appropriately tonight. pt now back to bed and appears to be sleeping soundly with hourly rounding checks. bed alarm on and call light in reach. will continue to monitor.
[2019-06-23 08:00] VITALS: BP 160/90
--- NOTE | 2019-06-23 12:23 | NUR ---
ASSUMED CARE OF PT AT 0715. PT IS A&OX4, FORGETFUL, AND VITAL SIGNS ARE STABLE. Z-GUARD APPLIED TO BOTTOM FOR OPEN AREA. PT CUED TO CHANGE POSTION, BUT REFUSES AND REMAINS SITTING ON BED WHEN NOT IN THERAPY. PT REMINDED TO CALL NURSING 15 MINUTES PRIOR TO ALL MEDICATION TIMES, PT CONTINUES TO FORGET TO CALL. POOR DIETARY INTAKE AT THIS TIME AND PT EDUCATED ABOUT NUTRITIONAL NEEDS, COMMUNICATES UNDERSTANDING. PT HAS BEEN KEEPING FOOD FROM TRAYS IN ROOM WHERE THEY HAVE NOT BEEN SAFELY STORED AND SPOILED. PT BECAME UPSET THAT NURSE REMOVED SPOILED FOOD ITEMS FROM ROOM. PT WAS EDUCATED ABOUT FOOD STORAGE SAFETY AND INSTRUCTED TO LET STAFF KNOW IF THERE WAS FOOD SHE WANTED TO SAVE SO THAT IT COULD BE STRORED PROPERLY, PT COMMUNICATED UNDERSTANDING. PT DENIES PAIN, PARTICIPATED IN SCHEDULED THERAPIES. FALL PRECAUTIONS IN PLACE AND NURSING WILL CONTINUE TO MONITOR.
[2019-06-23 20:00] VITALS: BP 158/99
--- NOTE | 2019-06-24 01:55 | NUR ---
assumed care at approx 1900 evening 06/23. pt sitting up in bed at change of shift coloring in book. pt pleasant and cooperative. pt calling out appropriately for assistance. pt appears to be sleeping soundly with hourly rounding checks. bed alarm on and call light in reach. will continue to monitor.
[2019-06-24 07:30] VITALS: BP 136/74
--- NOTE | 2019-06-24 10:25 | NUR ---
ASSUMED CARE AT 0700. PATIENT IS ALERT AND ORIENTED X4, BUT IS IMPULSIVE. PATIENT MEYERS'S. PRINCIPAL SYSTEMS ENGINEER ARE EQUAL. LUNGS ARE CLEAR. ABD IS SOFT WITH BSX4. PATIENT IS UP WITH SBA AND Gait belt. FALL AND SAFETY PROTOCOLS IN PLACE. UP IN BED FOR BREAKFAST. DENIES ANY PAIN AT THIS TIME. CONTINUES TO PROGRESS TOWARDS D/C GOALS. WILL CONTINUE TO MONITER.
--- NOTE | 2019-06-25 00:18 | NUR ---
PT ASSESSMENT COMPLETED AND VSS. MEDS GIVEN ORDERED AND WELL TOLERATED. FALL PRECAUTIONS IN PLACE. UP TO THE BATHROOM WITH ASST/GAIT/WALKER. STEADY. VOIDING MODERATE AMOUNT OF YELLOW URINE. DENIES PAIN. SLEEPING WELL. WILL CONTINUE TO MONITOR FREQUENTLY.
--- NOTE | 2019-06-25 08:00 | NUR ---
pt sister miss liao called wanting to see if heard from francisco cast, she had left message and had not heard anything from qasim cast, said she had question for centers. re-education that would reach out to francisco wang and centers again. miss liao asked again how she going to get medicaid brianda completed and how much of medicare pays for [facility]. re-education that medicare doesn't pay for [facility] or [facility] that is pd or some facility use pt medicaid, then phone disconnected. cm tried call back miss liao x 2 and no answer. cm has already provided pt and sister with senior blue book, afs choice list and snf list on past visit.
[2019-06-25 08:19] VITALS: BP 151/89
--- NOTE | 2019-06-25 09:42 | NUR ---
DISCHARGE PLANNING. SKILLED PLACEMENT RECOMMENDED AT DISCHARGE. REFERRAL FAXED TO [facility] T[facility]. CALL PLACED TO SANDRA TO FOLLOW UP ON REFERRAL. PER SANDRA, HE IS WAITING ON DAUGHTER TO BRING IN BANK INFORMATION AND MEDICAID APPLICATION. UNIT CM NOTIFIED.
--- NOTE | 2019-06-25 11:54 | NUR ---
WOUND CARE FOLLOW UP; DISCHARGE TODAY. THESE WOUND HAVE HAD REMARKABLE HEALING THIS ADMISSION. ONLY ON SUPERFICIAL AND SMALL AREA REMAINS. NO S/S OF INFECTION. RECOMMENDATION ; CONTINUE CURRENT TREATMENT. RN PRESENT
--- NOTE | 2019-06-25 14:54 | NUR ---
dp is faxing to [facility] Medicaid application papers.
--- NOTE | 2019-06-25 19:28 | NUR ---
PATIENT ALERT AND ORIENTED WITH PATIENT SISTER AT BEDSIDE. PATEINT AND SISTER TO DISCHARGE TOMORROW TO A CARE FACILITY AND ARE WORKING WITH CM.
[2019-06-25 19:40] VITALS: BP 164/97
--- NOTE | 2019-06-25 22:51 | NUR ---
PT ASSESSMENT COMPLETED AND VSS. MEDS GIVEN ORDERED AND WELL TOLERATED. FALL PRECAUTIONS IN PLACE. UP TO THE BATHROOM WITH ASST/GAIT/WALKER. STEADY. VOIDING LARGE AMOUNT OF YELLOW URINE. CONTACTED DR WILBURN REGARDING PTS ELEVATED BP AND THAT THIS WAS A TREND FOR THE PT. PT NOW STARTED ON BP MEDICATION. SLEEPING WELL. TURNED FREQUENTLY AND Z GUARD APPLIED. WILL CONTINUE TO MONITOR FREQUENTLY.
[2019-06-26 05:57] VITALS: BP 167/93
[2019-06-26 07:30] VITALS: BP 139/77
--- NOTE | 2019-06-26 08:06 | NUR ---
ASSUMED CARE AT 0700. PATIENT IS ALERT AND ORIENTED X4, BUT SHE CAN BE IMPULSIVE. PATIENT MEYERS'S, DIXONAC OPERATOR ARE EQUAL. LUNGS ARE CLEAR. ABD IS SOFT WITH BSX4. UP TO THE BATHROOM WITH SBA AND GAIT BELT TO VOID MAAME COLORED URINE. UP ON SIDE OF BED FOR MEALS. FALL AND SAFETY PROTOCOLS IN PLACE. DENIES ANY PAIN AT THIS TIME. CONTINUES TO PROGESS TOWARDS D/C GOALS. PLAN D/C TODAY TO LTC FACILITY. DR. WILBURN TO DO D/C MEDS. WILL CONTINUE TO MONITER.
--- NOTE | 2019-06-26 08:37 | NUR ---
ankit called and spoke with miguel in admitting at [facility] to see if they are able to accept for snf and then move to [facility] after sister reader got them medicaid brianda and bank statements yesterday " not going to be able take her today because the store administrator is not in today to give answer"/justice. ankit call sister to let her know and pt and sister "ok with going to [facility] today and if don't like we can look else where after her rehab, thank you for all your held and let me know what time she be picked up"/miss reader. ankit left message with val norris.
[2019-06-26 09:38] LABS: HEMATOCRIT 35.6 % (37.0-47.0); MCH 25.8 pg (26.0-34.0); MCHC 30.9 g/dL (28.0-37.0); MCV 83.4 fL (80.0-100.0); RBC 4.26 mil/uL (4.20-5.00); RDW 32.4 % (10.5-14.5); WBC 3.9 thou/uL (4.0-11.0)
[2019-06-26] MEDS ORDERED: COZAAR 50 MG TA50 MG PO (13:06)
[2019-06-26] MEDS ORDERED: LORATIDINE 10 M10 M1 PO (13:06)
[2019-06-26] MEDS ORDERED: CENTRUM SILVER1 EAC4 PO (13:06)
[2019-06-26] MEDS ORDERED: NYAMYC15 GM TOP (13:06)
--- NOTE | 2019-06-26 13:15 | NUR ---
DISCHARGE INSTRUTIONS COMPLETED BY DR. WILBURN. CHART COPIED. PATIENT TO LEAVE WITH TRANSPORTATION TO [facility]. REPORT CALLED TO [facility]
--- NOTE | 2019-06-27 12:22 | NUR ---
ankit spoke with myrna at [facility], she did get message that yelena was dc pt centers snf and then going to go to rcf at [facility] or retirement at different facility. "thank you and i will follow up with her"/myrna.
== END 2019-06-26 14:21 | disposition short-term general hospital (02) | DRG 71 ==
PROVIDERS: Internal Medicine; Internal Medicine Hematology & Oncology; ADMIT Physical Medicine & Rehabilitation
DX: G93.41 Metabolic encephalopathy (principal); N39.0 Urinary tract infection, site not specified; E46 Unspecified protein-calorie malnutrition; K62.6 Ulcer of anus and rectum; K29.70 Gastritis, unspecified, without bleeding; I10 Essential (primary) hypertension; K22.2 Esophageal obstruction; D50.9 Iron deficiency anemia, unspecified; D64.9 Anemia, unspecified; R59.0 Localized enlarged lymph nodes; R53.81 Other malaise; M41.9 Scoliosis, unspecified; E03.9 Hypothyroidism, unspecified; F41.8 Other specified anxiety disorders; F01.50 Vascular dementia, unspecified severity, without behavioral disturbance, psychotic disturbance, mood disturbance, and anxiety; B96.20 Unspecified Escherichia coli [E. coli] as the cause of diseases classified elsewhere; G89.29 Other chronic pain; M54.9 Dorsalgia, unspecified; D52.9 Folate deficiency anemia, unspecified; Z68.21 Body mass index [BMI] 21.0-21.9, adult; Z80.0 Family history of malignant neoplasm of digestive organs
CPT/HCPCS: 10112

== ENCOUNTER 2021-03-29 13:46 | Emergency (ER) | payer OTHER ==
[~2021-03-29] VITALS: Ht 170.2 cm; Wt 77.1 kg
[~2021-03-29 13:46] MED LIST changes: +CENTRUM SILVER1 EAC4 PO; +COZAAR 50 MG TA50 MG PO; +FOLIC ACID1 MG PO; +LORATIDINE 10 M10 M1 PO; +NYAMYC15 GM TOP; +PRENATAL COMPL1 EACH PO; +PROTONIX40 M1 PO; +SYNTHROID50 MCG PO; +TYLENOL EXTRA500 MG PO; +VITAMIN B-1100 M2 PO
[2021-03-29] MEDS ORDERED: LIPITOR10 MG PO (14:05)
[2021-03-29] MEDS ORDERED: ESCITALOPRA5 MG/5 ML PO (14:06)
[2021-03-29] MEDS ORDERED: TOPROL XL25 MG PO (14:07)
[2021-03-29 14:58] LABS: MCH 21.1 pg (26.0-34.0); MCHC 29.8 g/dL (28.0-37.0); MCV 70.7 fL (80.0-100.0); PLATELET COUNT 433 thou/uL (150-400); RBC 4.25 mil/uL (4.20-5.00); RDW 17.6 % (10.5-14.5); WBC 8.6 thou/uL (4.0-11.0)
[2021-03-29 15:02] LABS: ANION GAP 7 mmol/L (7-16); BUN 20 mg/dL (7-18); CALCIUM 9.2 mg/dL (8.5-10.1); CHLORIDE 106 mmol/L (98-107); CO2 29 mmol/L (21-32); CREATININE 1.2 mg/dL (0.6-1.0); GLUCOSE 119 mg/dL (74-106); POTASSIUM 4.7 mmol/L (3.5-5.1); SODIUM 142 mmol/L (136-145)
[2021-03-29 15:11] LABS: TROPONIN-I <0.06 ng/mL (<0.06)
[2021-03-29 15:50] LABS: ANISOCYTOSIS 1+; HYPOCHROMASIA 2+; MICROCYTES 1+
[2021-03-29 16:46] VITALS: BP 160/87
== END 2021-03-29 16:47 ==
LOC: ER 13:46
PROVIDERS: Emergency Medicine
DX: R06.00 Dyspnea, unspecified (principal); M41.80 Other forms of scoliosis, site unspecified; E03.9 Hypothyroidism, unspecified; E78.5 Hyperlipidemia, unspecified; Z79.899 Other long term (current) drug therapy

== ENCOUNTER 2021-09-28 10:49 | Inpatient (IN) | payer OTHER ==
[~2021-09-28] VITALS: Ht 170.2 cm; Wt 101.6 kg
[~2021-09-28 10:49] MED LIST changes: +AMLODIPINE BESYL5 MG PO; +ATORVASTATIN CA10 MG PO; +CENTRUM SILVER1 EAC5 PO; +COZAAR 25 MG TA25 M1 PO; +ESCITALOPRA5 MG/5 ML PO; +HYDROCHLOROTH12.5 M2 PO; +LEVOTHYROXINE50 MCG PO; +LIPITOR10 MG PO; +LISINOPRIL-HCT1 EAC2 PO; +METOPROLOL SUCC25 M1 PO; +PROTONIX40 M2 PO; +SIMVASTATIN10 MG PO; +TIROSINT75 MCG PO; +TOPROL XL25 MG PO; +ZPAK PO
[2021-09-28 10:52] VITALS: BP 194/95
[2021-09-28 11:26] LABS: CREATININE 1.2 mg/dL (0.6-1.0)
[2021-09-28 11:32] LABS: ALBUMIN 3.2 g/dL (3.4-5.0); TOTAL BILIRUBIN 0.3 mg/dL (0.2-1.0); TOTAL PROTEIN 7.3 g/dL (6.4-8.2)
[2021-09-28 11:46] LABS: ABSOLUTE NEUTROPHILS 3.9 thou/uL (1.4-8.2); BASOPHILS 0.5 % (0.0-2.0); EOSINOPHILS 3.4 % (0.0-3.0); HEMATOCRIT 33.4 % (37.0-47.0); HEMOGLOBIN 9.5 gm/dL (12.0-15.0); LYMPHOCYTES 30.7 % (24.0-44.0); MCH 19.7 pg (26.0-34.0); MCHC 28.6 g/dL (28.0-37.0); MONOCYTES 8.1 % (1.0-8.0); PLATELET COUNT 400 thou/uL (150-400); POLYS 57.3 % (36.0-66.0); RBC 4.84 mil/uL (4.20-5.00); RDW 20.7 % (10.5-14.5); WBC 6.8 thou/uL (4.0-11.0)
[2021-09-28 12:02] LABS: MAGNESIUM 2.2 mg/dL (1.8-2.4)
[2021-09-28] MEDS ORDERED: LEVO-T100 MCG PO (13:35)
[2021-09-28] MEDS ORDERED: [UNRECOGNIZED DRUG - CODE] PO (13:36)
[2021-09-28] MEDS ORDERED: FAMOTIDINE 20 M20 MG PO (13:36)
[2021-09-28] MEDS ORDERED: PROAIR RESPICL90 MCG INH (13:37)
[2021-09-28] MEDS ORDERED: ACETAMINOPHEN500 M1 PO (13:38)
[2021-09-28 15:53] VITALS: BP 141/68
--- NOTE | 2021-09-28 18:29 | NUR ---
[age] YEAR OLD FEMALE ADMITTED TO 3WEST ROOM 358. PT WAS BROUGHT INTO THE ER PER EMS DUE TO INCREASED SOA. PT ALERT AND ORIENTED TO PERSON AND PLACE ONLY. VSS, O2 2L. PT DENIES PAIN ON ADMISSION ASSESSMENT. C/O BEING SOA ON EXCERTION. WILL CONTINUE TO MONITOR.
[2021-09-28 19:20] VITALS: BP 153/73
--- NOTE | 2021-09-28 23:19 | NUR ---
PT ALERT AND ORIENTED X4. MILDLY FORGETFUL. VSS AFEBRILE. UNLABORED ON 2LNC. WHEEZES NOTED. FEW SCATTERED CRACKES. WILL CONTINUE TO MONITOR FOR S/S DISTRESS. PRESENTLY SHE IS RESTING COMFORTABLY WATCHING TV. DENIED PAIN OR SOA AT REST. SCDS APPLIED. EXPLAINED FALL PRECAUTIONS. MOISURE BARRIER TO BUTTOCKS. NO BREAKDOWN NOTED. ATTEMPTED TO CALL PT'S GRANDDAUGHTER BACK . NO RETURN OF CALL YET.
[2021-09-29 04:10] VITALS: BP 148/81
[2021-09-29 07:07] VITALS: BP 162/91
--- NOTE | 2021-09-29 07:46 | NUR ---
PT PROGRESSING TOWARDS D/C GOALS . VSS AFEBRILE. UNLABORED ON 2LNC SATS 96-97%. NO C/O PAIN OR SOA OVERNIGHT. BED DOWN .CALL LIGHT IN REACH. PT MILDLY CONFUSED AND IMPULSIVE AT TIMES. REINSTRUCTED PT ON FALL PRECAUTONS. BED ALARM IS ON. COVID PCR NEGATIVE. UPDATED PT'S DAUGHTER.
--- NOTE | 2021-09-29 07:48 | EKG ---
[address] [place] [address] ELECTROCARDIOGRAM REPORT Name: MARY NOBLE Room #: 358-P ADM IN M.R.#: [id number] Admission: 09/28/21 Attend Phys: Yolanda Kumar Discharge: Date of : 43 Report #: [id number] [facility] ED Test Date: 2021-09-28 Test Time: 11:00:49 Pat Name: MARY NOBLE Department: Room: [facility] Gender: F Converting Technician: DAVID : [id number] Requested By: Joseph Soliz Order Number: [id number] MD: Manan Kwong Measurements Intervals [place] Rate: 81 P: 62 SD: 156 QRS: -35 QRSD: 87 T: 60 QT: 381 QTc: 443 Interpretive Statements Sinus rhythm Left ventricular hypertrophy Inferior infarct, old Compared to ECG 06/05/2019 20:00:22 Left ventricular hypertrophy now present Sinus tachycardia no longer present Electronically Signed On 09-29-2021 7:48:23 PICTURE BOOKER by Manan Kwong [email or web address] <ELECTRONICALLY SIGNED> By: Manan Kwong MD, [facility] 09/29/21 0748 1100 1100 Manan Kwong MD, FAC /EPI
--- NOTE | 2021-09-29 11:03 | NUR ---
INITIAL ASSESSMENT: SW reviewed chart and spoke with nursing and attending physician. Pt was admitted from [facility] due to pneumonia/hypoxia. Pt had negative COVID test. Pt is currently on 1L of O2 and on IV abx. Pt may be ready to discharge back to [facility] tomorrow. SW met with pt at bedside. Introduced role of SW. Pt is alert/orientated. Pt reports she has lived at [facility] for a couple of years. Prior to admission, pt was not using any DME or home O2. Pt states her PCP is Dr. Jose Martin Armas. Pt is agreeable with having HH services if needed when she [place] the [place] facility. SW asked attending physician if therapy evals will be ordered. SW is following to assist as needed with discharge planning.
[2021-09-29 15:10] VITALS: BP 140/74
[2021-09-29 19:10] VITALS: BP 124/70
--- NOTE | 2021-09-29 22:17 | NUR ---
PT WATCHING TV, TALKATIVE. O2 PER NC. LUNGS WHEEZES. PT NOT SOA WITH CONVERSATION. PT DECLINED HS SNACK, WANTING ICE CHIPS. BED ALARM ON. PT HAS CONFUSION PER HISTORY.
[2021-09-30 07:10] VITALS: BP 143/78
[2021-09-30] MEDS ORDERED: LEVOFLOXACIN500 MG PO (09:35)
[2021-09-30 11:05] VITALS: BP 124/70
--- NOTE | 2021-09-30 14:43 | NUR ---
DISCHARGE NOTE: REGAN reviewed chart and spoke with nursing and attending physician. Pt is medically stable for discharge back to [facility] today with [facility]. Rest/exercise oximetry completed. Pt does need 4L of O2 with activity. REGAN faxed discharge ppwk to [facility] and spoke with the charge nurse, who states that they have residents who use [facility] in their facility. REGAN faxed discharge ppwk to [facility] and confirmed info was received. REGAN notified HH liaison of pt's discharge. REGAN faxed home O2 referral with testing and script to [facility]. Notified [facility] liaison of new referral. Pt provided with [facility] portable O2 tank. REGAN arranged w/c van transportation through [employer] for [id number] today. REGAN notified Director of Case Mgmt of transportation arrangements. REGAN met with pt at bedside to discuss discharge plan. Pt is aware and in agreement with plan. REGAN spoke with pt's granddtr/DPOA, Amaya, via phone to provide update and notify of discharge. Amaya is agreeable with plan. Contact info for HH and [facility] placed in pt's discharge summary. No additional SW needs identified at this time, but is available to assist should needs arise.
--- NOTE | 2021-09-30 15:11 | NUR ---
RN ASSUMED PT'S CARE AT 0700AM, PT IS A&OX3 ( PERSON , PLACE AND TIME), PT IS ON O2 1L/MIN/NC, PT 'S SOB HAS IMPROVED, PT'S VS ARE STABLE BY THIS TIME, RN RECEIVED ORDER TO DC PT TO HOME WITH HOME HEALTH, PT DENIES PAIN .
--- NOTE | 2021-09-30 18:18 | NUR ---
transportation person order picker pt to home now, PT UNDERSTANDS DC TEACHING WELL
== END 2021-09-30 18:30 | disposition home health service (06) | DRG 193 ==
LOC: ER 10:49 → 3W 12:43 → EROBS 12:43 → 3W 15:53
PROVIDERS: Emergency Medicine; ADMIT Hospitalist; ATTEND Hospitalist
DX: J18.9 Pneumonia, unspecified organism (principal); J96.91 Respiratory failure, unspecified with hypoxia; Z20.822 Contact with and (suspected) exposure to COVID-19; E78.5 Hyperlipidemia, unspecified; K44.9 Diaphragmatic hernia without obstruction or gangrene; I51.7 Cardiomegaly; Z79.899 Other long term (current) drug therapy; Z28.21 Immunization not carried out because of patient refusal
CPT/HCPCS: 10080